=== PATIENT | female | born 1940 | race American Indian/Alaskan Native ===

== ENCOUNTER 2019-05-09 14:52 | Inpatient (IN) ==
--- NOTE | 2019-05-09 15:27 | Emergency Department Note ---
Lower Extremity Injury HPI - General Chief Complaint: Extremity Injury, Lower Stated Complaint: left hip pain Time Seen by Provider: 05/09/19 14:57 Source: patient, EMS, RN notes reviewed Mode of arrival: EMS Limitations: no limitations - History of Present Illness HPI Narrative: 78-year-old female patient presents to emergency department via ambulance as a transfer from [facility] emergency department with chief complaint of left hip and ankle pain. Patient tells me she was ambulating with a walking stick approximately 2 days ago when she actually dropped it and reached down to pick it up. During that time she fell forward landed on her left side injuring her right hip and ankle. She continued to have pain and was nonweightbearing on decided to seek treatment today (05/09). A review of the [facility] emergency note indicates the left hip x-ray showed a paced healing intertrochanteric femur fracture. Left ankle x-ray showed minor disruption of the cortex of the distal fibula which is consistent with a distal fibular fracture. The emergency room provider contacted Dr. Gillette (orthopedist) about the patient's need for further evaluation. Dr. Gillette recommended the patient be transferred to [facility] for further care. Upon arrival, patient is resting on the emergency room gurney in the position of comfort. She complains of mild pain to her ankle and left thigh. Her left ankle is currently in a air cast. She denies any systemic fever, sweats, chills, dizziness, vision changes, hearing changes, shortness of breath, retrosternal chest pain, palpitations, abdominal pain, nausea, vomiting, or diarrhea. 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 She typically uses a walker or walking stick to help with ambulation until her injury. Her other past history consists of type 2 diabetes and allergic rhinitis. Past surgical history consists of cerebral aneurysm repair, cholecystectomy, and CVA with left-sided hemiparesis. - Related Data Home Medications Medication Instructions Recorded Confirmed Brimonidine Tartrate [Lumify] 2.5 ml OP BID 05/09/19 05/09/19 Cyanocobalamin (Vitamin B-12) 1,000 mcg PO DAILY 05/09/19 05/09/19 [Vitamin B-12] Ergocalciferol (Vitamin D2) 50,000 unit PO DAILY 05/09/19 05/09/19 [Vitamin D2] Ferrous Sulfate 325 mg PO DAILY 05/09/19 05/09/19 HYDROcodone/APAP 5/325MG [[place] 1 tab PO Q4HP PRN 05/09/19 05/09/19 5-325Mg] Lactase [Ultra Dairy Digestive] 9,000 unit PO TID 05/09/19 05/09/19 Latanoprost/Pf [Latanoprost 0.005% 7.5 ml OP HS 05/09/19 05/09/19 Eye Drop] Lisinopril [Zestril] 20 mg PO DAILY 05/09/19 05/09/19 Melatonin 5 mg PO HS 05/09/19 05/09/19 Montelukast Sodium [Singulair] 10 mg PO HS 05/09/19 05/09/19 Pantoprazole Sodium [Protonix] 40 mg PO DAILY 05/09/19 05/09/19 Polyethylene Glycol 3350 [Clearlax] 17 gm PO DAILYP PRN 05/09/19 05/09/19 Sucralfate [Carafate] 1 gm PO BIDCC 05/09/19 05/09/19 Timolol 0.5% Ophth Drops [Timoptic 1 gtt OU BID 05/09/19 05/09/19 0.5% Ophth Drops] amLODIPine BESYLATE [Norvasc] 2.5 mg PO DAILY 05/09/19 05/09/19 Allergies Allergy/AdvReac Type Severity Reaction Status Date / Time aspirin Allergy Unknown Verified 05/09/19 14:57 Review of Systems All systems ED: reviewed and negative except as stated. Past Medical History - Past Medical History Medical history: Reports: CVA (CVA 2 resulting in left sided hemiparesis.), DM Psychiatric history: Reports: no psych history Surgical history ED: Reports: cholecystectomy, other (cerebral aneurysm repair) Family history: Reports: diabetes (in both her mother and father.) - Social History smoking status: Current every day smoker Physical Exam Limitations: no limitations, physical limitation (left-sided hemiparesis resulting in left upper and lower extremity weakness and decreased range of motion.) General appearance: alert, in no apparent distress Head: atraumatic, normocephalic Eye: Present: normal appearance, PERRL, EOMI. Absent: scleral icterus, conjunctival injection ENT: Present: normal oropharynx, mucous membranes moist Neck: Present: normal inspection, full ROM. Absent: tenderness, lymphadenopathy Respiratory: Present: normal lung sounds bilaterally. Absent: respiratory distress, wheezes, stridor, accessory muscle use, prolonged expiratory phase Cardiovascular: Present: regular rate, normal rhythm. Absent: systolic murmur, diastolic murmur Abdominal: Present: soft. Absent: distention, tenderness, guarding, rebound, rigidity, organomegaly, mass Extremities: Present: tenderness, normal capillary refill (to palpation of the left hip joint and left ankle.), joint swelling (left ankle.). Absent: full ROM, pedal edema, pretibial edema Neurological: Present: alert, oriented X3, motor sensory deficit (towards the left side.) Psychiatric: Present: normal affect, normal mood Skin: Present: warm, dry Course Course Narrative: Patient was brought into the emergency department and a history of physical exam was performed. IV was established and routine laboratory studies were drawn. EKG was obtained for preoperative clearance. Dr. Gillette will be arriving on the floor around 1700 this afternoon. Patient is going to be made comfortable awaiting his arrival. No repeat imaging will be performed until the senior analysis specialist arrives. A review of her laboratory studies show CBC with mild normocytic anemia RBC 3.87, hemoglobin 11.7, hematocrit 35.8, MCV 92.3. All is normal limits. CMP potassium 3.2, alkaline phosphatase 195, as normal limits. PT 13, INR 1.0. Portable 1 view chest x-ray showed mild cardiomegaly and interstitial lung disease. The senior analysis specialist arrived at the bedside and is now going to take the patient to the operating room. I reviewed all the data prior to the patient's admission and found no other concerning findings. Patient has rested comfortably on the emergency room gurney and left the emergency department in stable condition. At this time all other treatment decisions and orders will be carried out by the senior analysis specialist in conjunction with the hospitalist service. Vital Signs Temperature 97.3 F 05/09/19 14:52 Pulse Rate 69 05/09/19 14:52 Respiratory Rate 18 05/09/19 14:52 Blood Pressure 157/60 05/09/19 14:52 Pulse Oximetry (%) 99 05/09/19 14:52 Temperature 97.3 F 05/09/19 14:52 Pulse Rate 69 05/09/19 16:47 Respiratory Rate 18 05/09/19 14:52 Blood Pressure 175/53 05/09/19 16:46 Pulse Oximetry (%) 100 05/09/19 16:47 Extremity Injury, Lower - Lab Data Lab results reviewed: Yes I reviewed the patient's lab results. Result diagrams: 05/09/19 15:40 05/09/19 15:40 Lab Results 05/09/19 05/09/19 05/09/19 Range/Units 15:40 15:40 15:42 WBC 8.3 (4.5-11.0) K/mcL RBC 3.87 L (4.00-5.20) M/mcL Hgb 11.7 L (12.0-15.0) g/dL Hct 35.8 L (36.0-48.0) % MCV 92.3 (80.0-100.0) fL MCH 30.3 (26.0-34.0) pg MCHC 32.8 (31.0-36.0) g/dL RDW 13.1 (11.5-14.5) % Plt Count 409 (140-440) K/mcL MPV 8.8 (7.4-10.4) fL Gran % 66.4 (38.0-78.0) % Lymph % (Auto) 24.6 (15.5-49.0) % [place] % (Auto) 6.2 (1.0-12.0) % Eos % (Auto) 2.3 (0.0-7.0) % Baso % (Auto) 0.5 (0.0-2.0) % Gran # 5.5 (1.8-8.0) K/mcL Lymph # (Auto) 2.0 (1.5-4.8) K/mcL [place] # (Auto) 0.5 (0.1-0.9) K/mcL Eos # (Auto) 0.2 (0.0-0.7) K/mcL Baso # (Auto) 0 (0.0-0.3) K/mcL PT 13.0 (11.9-14.5) sec INR 1.0 (0.9-1.1) Sodium 140 (133-145) mmol/L Potassium 3.2 L (3.3-5.1) mmol/L Chloride 103 (96-108) mmol/L Carbon Dioxide 25 (22-30) mmol/L Anion Gap 12.0 (8-16) BUN 10 (8-23) mg/dl Creatinine 0.6 (0.6-1.1) mg/dl GFR Calculation 89 Glucose 101 (70-105) mg/dL Calcium 9.3 (8.6-10.4) mg/dl Total Bilirubin 0.4 (0.0-1.0) mg/dL AST 14 (0-37) U/l ALT 10 (0-40) U/l Alkaline Phosphatase 195 H (39-117) U/L Total Protein 7.1 (5.9-8.4) gm/dL Albumin 3.8 (3.2-5.2) gm/dL Globulin 3.3 (2.2-3.7) gm/dL Albumin/Globulin Ratio 1.2 (1.0-2.3) - Radiology Data Radiology results reviewed: Yes I reviewed the patient's radiology results. Ordering Physician: Ruben Blanca PA-C Date of Service: 05/09/19 Procedure(s): XR chest 1V portable Accession Number(s): [id number] CLINICAL INFORMATION: 78 y/o F. Daily smoker. preoperative eval. COMPARISON: None. FINDINGS: Heart is borderline enlarged. Mediastinum and pulmonary vessels are normal. There is mild interstitial disease in both lungs - more prominent in the perihilar region. No effusion. Right diaphragm mildly elevated IMPRESSION: Mild cardiomegaly. Mild interstitial disease, predominantly in perihilar regions, is most likely interstitial fibrosis related to smoking Interpreted and Authenticated by: Deandre Bryan 05/09/19 - EKG Data EKG attestation: Yes I reviewed and interpreted this EKG., Yes There are no EKG findings of acute coronary syndrome, Yes This EKG will be read by child protective services social worker Disposition Pt seen by [facility] only: Yes Clinical Impression: Normocytic anemia, Hypokalemia Fracture of hip Qualifiers: Encounter type: initial encounter Fracture type: closed Laterality: left Qualified Code(s): S72.002A - Fracture of unspecified part of neck of left femur, initial encounter for closed fracture Ankle fracture Qualifiers: Encounter type: initial encounter Fracture type: closed Laterality: left Qualified Code(s): S82.892A - Other fracture of left lower leg, initial encounter for closed fracture Disposition: Xfer As Inpt ([facility]) Condition: Fair Instructions: Hip Fracture (ED) Additional Instructions: Patient is being admitted to the hospital under the care of both the senior analysis specialist and the hospitalist. All other treatment decisions and orders will be carried out by them. Referrals: No,PCP [Referring] - Time of Disposition: 17:11
--- NOTE | 2019-05-09 16:13 | XRay Report ---
CLINICAL INFORMATION: 78 y/o F. Daily smoker. preoperative eval. COMPARISON: None. FINDINGS: Heart is borderline enlarged. Mediastinum and pulmonary vessels are normal. There is mild interstitial disease in both lungs - more prominent in the perihilar region. No effusion. Right diaphragm mildly elevated IMPRESSION: Mild cardiomegaly. Mild interstitial disease, predominantly in perihilar regions, is most likely interstitial fibrosis related to smoking Interpreted and Authenticated by: Deandre Bryan 05/09/19
[2019-05-09 16:21] LABS: Basophils # (Auto) 0 K/mcL (0.0-0.3); Basophils % (Auto) 0.5 % (0.0-2.0); Eosinophils # (Auto) 0.2 K/mcL (0.0-0.7); Eosinophils % (Auto) 2.3 % (0.0-7.0); Granulocytes % (Auto) 66.4 % (38.0-78.0); Hematocrit 35.8 % (36.0-48.0); Hemoglobin 11.7 g/dL (12.0-15.0); Lymphocytes % (Auto) 24.6 % (15.5-49.0); Mean Cell Volume 92.3 fL (80.0-100.0); Mean Corpuscular HGB Conc 32.8 g/dL (31.0-36.0); Mean Platelet Volume 8.8 fL (7.4-10.4); Monocytes # (Auto) 0.5 K/mcL (0.1-0.9); Monocytes % (Auto) 6.2 % (1.0-12.0); Platelet Count 409 K/mcL (140-440); RBC 3.87 M/mcL (4.00-5.20); Red Cell Distribution Width 13.1 % (11.5-14.5); WBC 8.3 K/mcL (4.5-11.0)
[2019-05-09 16:35] LABS: ALT/SGPT 10 U/l (0-40); AST/SGOT 14 U/l (0-37); Albumin 3.8 gm/dL (3.2-5.2); Albumin/Globulin Ratio 1.2 (1.0-2.3); Alkaline Phosphatase 195 U/L (39-117); Bilirubin,Total 0.4 mg/dL (0.0-1.0); Blood Urea Nitrogen 10 mg/dl (8-23); Calcium 9.3 mg/dl (8.6-10.4); Carbon Dioxide 25 mmol/L (22-30); Chloride 103 mmol/L (96-108); Globulin 3.3 gm/dL (2.2-3.7); Glomerular Filtration Rate 89; Glucose 101 mg/dL (70-105)
[2019-05-09] MEDS ORDERED: fentaNYL 100 MCG/2 ML VIAL IV ONE (17:35)
[2019-05-09] MEDS ORDERED: GLYCOPYRROLATE 0.2 MG/ML VIAL IV ONE (17:35)
[2019-05-09] MEDS ORDERED: LIDOCAINE HCL/PF 100 MG/5 ML SYRINGE IV ONE (17:35)
[2019-05-09] MEDS ORDERED: DEXAMETHASONE 10 MG/ML VIAL IV ONE (17:35)
[2019-05-09] MEDS ORDERED: KETAMINE 100 MG/ML ML IV ONE (17:35)
[2019-05-09] MEDS ORDERED: PROPOFOL 200 MG/20 ML VIAL IV ONE (17:35)
[2019-05-09] MEDS ORDERED: ONDANSETRON 4 MG/2 ML VIAL IV ONE (17:35)
[2019-05-09] MEDS ORDERED: MIDAZOLAM 2 MG/2 ML VIAL IV ONE (17:35)
[2019-05-09] MEDS ORDERED: fentaNYL 100 MCG/2 ML VIAL IV PRN (18:24)
[2019-05-09] MEDS ORDERED: LACTATED RINGERS 250 ML IV PRN (18:24)
[2019-05-09] MEDS ORDERED: ACETAMINOPHEN 1,000 MG/100 ML BOTTLE IV ONE (18:24)
[2019-05-09] MEDS ORDERED: BENZOCAINE/MENTHOL 1 LOZENGE PO PRN (18:24)
[2019-05-09] MEDS ORDERED: HYDROmorphone 2 MG/ML VIAL IV PRN (18:24)
[2019-05-09] MEDS ORDERED: ONDANSETRON 4 MG/2 ML VIAL IV PRN ×2 (18:24→19:48)
[2019-05-09] MEDS ORDERED: FLUMAZENIL 0.1 MG/ML ML IV PRN (18:24)
[2019-05-09] MEDS ORDERED: NALOXONE HCL 0.4 MG/ML VIAL IV PRN (18:24)
[2019-05-09] MEDS ORDERED: IPRATROPIUM/ALBUTEROL 3 ML AMPUL.NEB NEB PRN (18:24)
[2019-05-09] MEDS ORDERED: LACTATED RINGERS 1,000 ML IV SCH (18:30)
--- NOTE | 2019-05-09 18:49 | Brief Operative Note ---
Date of procedure: 05/09/19 Pre-op diagnosis: L hip intertrochanateric fracture Post-op diagnosis: same Procedure: gamma nail Grafts/Implants: Yes (gamma karol) Anesthesia: GETA Complications: none Surgeon: Thong Gillette Card Scraper: Ella Bradley Estimated blood loss (cc): 50 Specimens Removed/Pathology: none sent Condition: stable Disposition: PACU
--- NOTE | 2019-05-09 19:44 | History and Physical Report ---
DATE OF ADMISSION: 05/09/2019 IDENTIFICATION: Ms. Alvarez is a 78-year-old female. CHIEF COMPLAINT: Left hip fracture. HISTORY: Kayla sustained a fall 2 days ago. She presented to [facility] today and radiographs demonstrated the fracture. She is now transferred for further evaluation. I have spoken with the hospitalist. They agreed to manage the patient's medical problems, and I have been asked to care for her left hip fracture. PAST MEDICAL HISTORY: Significant for hypertension and dyspepsia as well as respiratory disease. PAST SURGICAL HISTORY: She had a previous CVA repair, cholecystectomy. She does have a history of type 2 diabetes. MEDICATIONS: Include oral supplements, hydrocodone, Latanoprost eyedrops, Zestril, Singulair, Protonix, Norvasc. ALLERGIES: TO ASPIRIN. PHYSICAL EXAMINATION: GENERAL: She is awake and alert. HEENT: Head is normocephalic, atraumatic. Eyes: PERRLA. Conjunctivae clear. She does have diffuse weakness throughout her left. NECK: Supple without pain on range of motion. HEART: Regular. LUNGS: Clear. LOWER EXTREMITIES: Her left hip shows pain with any motion. She does seem to be grossly without neurovascular deficit. Hemoglobin 11.7, hematocrit 35.8. IMAGING: Radiographs demonstrated an intertrochanteric hip fracture. PLAN: Will proceed with an open reduction and internal fixation of the left hip. GDD:in Job ID: [id number] Doc ID: [id number] Thong Gillette MD
[2019-05-09] MEDS ORDERED: MAGNESIUM SULFATE 2 GM/50 ML BAG IV PRN (19:48)
[2019-05-09] MEDS ORDERED: ACETAMINOPHEN 800 MG/80 ML BOTTLE IV PRN (19:48)
[2019-05-09] MEDS ORDERED: MAGNESIUM HYDROXIDE 30 ML ORAL.SUSP PO PRN (19:48)
[2019-05-09] MEDS ORDERED: traZODone HCL 50 MG TABLET PO PRN (19:48)
[2019-05-09] MEDS ORDERED: guaiFENesin/CODEINE 10 ML UDC PO PRN (19:48)
[2019-05-09] MEDS ORDERED: POTASSIUM CHLORIDE 40 MEQ in DEXTROSE 5% IN WATER 500 ML IV PRN (19:48)
[2019-05-09] MEDS ORDERED: POLYETHYLENE GLYCOL 3350 17 GM PACKET PO PRN ×2 (19:48)
[2019-05-09] MEDS: 0.9 % SODIUM CHLORIDE 1,000 ML IV SCH (20:13)
--- NOTE | 2019-05-09 20:19 | Internal Medicine Consult Note ---
Medical - CN: HPI - Data of Consult Requesting physician: Thong Gillette - Consult Narrative Reason for consult: Fall with left hip injury History of present illness: Ms. Alvarez is a 78 year old F with known history of CVA with left-sided weakness who presents to [place] [facility] after getting off balance and stumbled while reaching for her walker. She sustained injuries to her left side. Subsequent evaluation at [place] [facility] revealed left intertrochanteric femur fracture along with left ankle fracture which was splinted in the ER. Orthopedics was consulted and patient was transferred to [facility] for further orthopedic intervention. Patient at baseline uses a walker from her left left hemiparesis. She carries a history of NIDDM. She denies recent cardiac surgery. She has carries a history of hypertension which is well controlled on home med ications. She denies any precipitating events prior to fall including lightheadedness dizziness thunderclap headache seizure or incontinence. She denies vision loss. Patient endorses to history as above. She denies fever chills, diarrhea, chest pain. She denies changes in medications. Review of systems A 10 point review system was performed and is negative except for one discussed above CC: Puneet Fontaine Medical - CN: PMH Medical history: Hypertension History of CVA with left-sided deficits Degenerative joint disease Glaucoma DM type II Seasonal allergy disorder GERD Peptic ulcer disease Surgical history: Cholecystectomy Cerebral aneurysm repair Family history: reviewed and not pertinent Pertinent family history: Diabetes father and mother Smoking status: Current every day smoker Medical - CN: Meds Home Medications Medication Instructions Recorded Confirmed Type Brimonidine Tartrate [Lumify] 2.5 ml OP BID 05/09/19 05/09/19 History Cyanocobalamin (Vitamin B-12) 1,000 mcg PO DAILY 05/09/19 05/09/19 History [Vitamin B-12] Ergocalciferol (Vitamin D2) 50,000 unit PO DAILY 05/09/19 05/09/19 History [Vitamin D2] Ferrous Sulfate 325 mg PO DAILY 05/09/19 05/09/19 History HYDROcodone/APAP 5/325MG [[place] 1 tab PO Q4HP PRN 05/09/19 05/09/19 History 5-325Mg] Lactase [Ultra Dairy Digestive] 9,000 unit PO TID 05/09/19 05/09/19 History Latanoprost/Pf [Latanoprost 0.005% 7.5 ml OP HS 05/09/19 05/09/19 History Eye Drop] Lisinopril [Zestril] 20 mg PO DAILY 05/09/19 05/09/19 History Melatonin 5 mg PO HS 05/09/19 05/09/19 History Montelukast Sodium [Singulair] 10 mg PO HS 05/09/19 05/09/19 History Pantoprazole Sodium [Protonix] 40 mg PO DAILY 05/09/19 05/09/19 History Polyethylene Glycol 3350 [Clearlax] 17 gm PO DAILYP PRN 05/09/19 05/09/19 History Sucralfate [Carafate] 1 gm PO BIDCC 05/09/19 05/09/19 History Timolol 0.5% Ophth Drops [Timoptic 1 gtt OU BID 05/09/19 05/09/19 History 0.5% Ophth Drops] amLODIPine BESYLATE [Norvasc] 2.5 mg PO DAILY 05/09/19 05/09/19 History Allergies Allergy/AdvReac Type Severity Reaction Status Date / Time aspirin Allergy Unknown Verified 05/09/19 14:57 Medical - CN: Exam - Constitutional Vitals: Temp Pulse Resp BP Pulse Ox 96.9 F L 67 16 158/61 97 05/09/19 19:20 05/09/19 19:20 05/09/19 19:20 05/09/19 19:20 05/09/19 19:20 General appearance: no acute distress Exam: Alert oriented Head normocephalic Oral cavity dry No ear nose discharge Neck no hepatopathy S1-S2 occasionally irregular, ESM grade 1 Diminished breath sounds bases Abdomen soft nontender Lower extremity no sinus clubbing no joint swelling Left lower extremity ankle splinted, externally rotated and shortened Skin no suspicious lesion Psych alert cooperative Neuro nonfocal except for previous left-sided deficits with grade 3 strength left upper extremity Medical - CN: Result - Labs CBC & Chem 7: 05/09/19 15:40 05/09/19 15:40 Labs: Short CBC 05/09/19 Range/Units 15:40 WBC 8.3 (4.5-11.0) K/mcL Hgb 11.7 L (12.0-15.0) g/dL Hct 35.8 L (36.0-48.0) % Plt Count 409 (140-440) K/mcL BMP 05/09/19 15:40 Sodium 140 Potassium 3.2 L Chloride 103 Carbon Dioxide 25 BUN 10 Creatinine 0.6 Glucose 101 Calcium 9.3 Liver Function 05/09/19 Range/Units 15:40 Total Bilirubin 0.4 (0.0-1.0) mg/dL AST 14 (0-37) U/l ALT 10 (0-40) U/l Alkaline Phosphatase 195 H (39-117) U/L Albumin 3.8 (3.2-5.2) gm/dL Medical - CN: A/P (1) Fracture of hip Status: Acute Assessment and plan: * Left femoral neck fracture-patient will undergo orthopedic intervention * Left ankle fracture splinted * Pain management as per orthopedics * DVT prophylaxis will be as per orthopedics Hospitalist consult * Preoperative risk evaluation-based on RCRI [place] [employer] stratification patient is a high risk category given history of CVA x2 however there are no modifiable risk factors at this time. Would recommend maintaining intraoperative map over 65 to maintain adequate cerebral and coronary perfusion. Anesthesia and surgery specific risks will be addressed by difficult care providers * History of hypertension continue LETTY inhibitor/CCB * hypokalemia replace potassium as indicated * History of glaucoma continue brimonidine/latanoprost * GERD continue PPI/sucralfate * DM type II continue sliding-scale insulin/diabetic diet * full code Plan * Review postoperatively * Pain management * Pre-existing well condition management as above * Postoperative care as per orthopedics
[2019-05-09] MEDS: HEPARIN 5,000 UNIT/ML VIAL SQ SCH (20:47)
[2019-05-09] MEDS: DOCUSATE SODIUM 100 MG CAPSULE PO SCH (20:47)
[2019-05-09] MEDS: MELATONIN 3 MG TABLET PO SCH (20:48)
[2019-05-09] MEDS: MONTELUKAST 10 MG TABLET PO SCH (20:48)
[2019-05-09] MEDS: SENNOSIDES/DOCUSATE SODIUM 1 TAB TABLET PO SCH (20:48)
[2019-05-09] MEDS: LATANOPROST OPHTH DROPS 2.5ML BOTTLE OU SCH (20:49)
[2019-05-09] MEDS: BRIMONIDINE OPHTH DROPS 1 GTT BOTTLE 5ML OU SCH (20:49)
[2019-05-09] MEDS: TIMOLOL 0.5% OPHTH DROPS BOTTLE 5ML OU SCH (20:49)
[2019-05-09] MEDS: HYDROcodone/APAP 5/325MG TABLET PO PRN (20:49)
[2019-05-09] MEDS: LACTASE 1 TABLET PO SCH (20:55)
[2019-05-09] MEDS: 0.9 % SODIUM CHLORIDE 10 ML SYRINGE IV SCH (23:17)
[2019-05-10] MEDS: HYDROmorphone 2 MG/ML VIAL IV PRN (01:01)
[2019-05-10] MEDS: HYDROcodone/APAP 5/325MG TABLET PO PRN ×4 (02:24→21:04)
[2019-05-10] MEDS: 0.9 % SODIUM CHLORIDE 10 ML SYRINGE IV SCH ×3 (05:37→20:58)
--- NOTE | 2019-05-10 06:41 | XRay Report ---
CLINICAL INFORMATION: Left hip fracture COMPARISON: Preoperative films unavailable FINDINGS: Intertrochanteric fracture is reduced to anatomic alignment and transfixed by gamma nail. Mild left hip degenerative changes noted IMPRESSION: ORIF intertrochanteric fracture transfixed by gamma nail. Anatomic alignment Interpreted and Authenticated by: Deandre Bryan 05/10/19
[2019-05-10 07:12] LABS: ALT/SGPT 13 U/l (0-40); AST/SGOT 23 U/l (0-37); Albumin 2.9 gm/dL (3.2-5.2); Albumin/Globulin Ratio 0.9 (1.0-2.3); Alkaline Phosphatase 164 U/L (39-117); Bilirubin,Direct < 0.2 mg/dL (0.0-0.3); Bilirubin,Total 0.3 mg/dL (0.0-1.0); Blood Urea Nitrogen 12 mg/dl (8-23); Calcium 8.5 mg/dl (8.6-10.4); Carbon Dioxide 22 mmol/L (22-30); Chloride 102 mmol/L (96-108); Globulin 3.1 gm/dL (2.2-3.7); Glomerular Filtration Rate 89; Glucose 248 mg/dL (70-105); Lactate Dehydrogenase 305 U/L (94-250); Phosphorous 4.4 mg/dL (2.7-4.5); Triglycerides 98 mg/dl (<150); Uric Acid 3.4 mg/dL (2.5-8.0)
[2019-05-10 07:13] LABS: Hematocrit 29.2 % (36.0-48.0); Hemoglobin 9.9 g/dL (12.0-15.0); Mean Cell Volume 94.2 fL (80.0-100.0); Mean Corpuscular HGB Conc 33.8 g/dL (31.0-36.0); Mean Platelet Volume 9.1 fL (7.4-10.4); Platelet Count 363 K/mcL (140-440); WBC 8.2 K/mcL (4.5-11.0)
[2019-05-10] MEDS: PANTOPRAZOLE 40 MG TABLET PO SCH (07:18)
--- NOTE | 2019-05-10 07:31 | Operative Note ---
DATE OF OPERATION: 05/09/2019 PREOPERATIVE DIAGNOSIS: Left intertrochanteric hip fracture. POSTOPERATIVE DIAGNOSIS: Left intertrochanteric hip fracture. OPERATION PROPOSED: Reduction and intramedullary hip screw fixation of left intertrochanteric hip fracture. OPERATION PERFORMED: Reduction and intramedullary hip screw fixation of left intertrochanteric hip fracture. OPERATING SURGEON: Ulises Gillette MD SOLID WASTE TRUCK DRIVER: Ella Bradley PA-C. This provider's expertise and technical skill were required throughout the case. The PA assisted with preoperative coordination, intraoperative retraction, wound closure, dressing and splint application, as well as postoperative documentation and care coordination. INDICATIONS: This is an elderly lady with a displaced intertrochanteric hip fracture in need of operative treatment. OPERATION IN DETAIL: Informed consent was obtained. She was taken to the operating where she was provided with appropriate anesthetic and prophylactic antibiotics. She was carefully positioned. Her hip was prepped sterilely. An incision was made proximal to the greater trochanter. The trochanter was entered at the tip. I centered the wire on the lateral projection and then advanced into the intramedullary canal. I then opened with the opening reamer. A short gamma nail was advanced across the guidewire. I then drilled the outer cortex. I advanced a 3.2 mm guidewire into the femoral head and neck. I reamed and placed a hip bolt. Compression was applied. A distal interlocking screw was applied and I applied a locking screw to the construct. The wounds were irrigated thoroughly and closed with an 0 Vicryl interrupted fashion, 2-0 Vicryl inverted deep dermal, and dulce. The procedure was tolerated well. No complications. Estimated blood loss is 50 mL GDD:marion Job ID: [id number] Doc ID: [id number] Thong Gillette MD
[2019-05-10] MEDS: SUCRALFATE 1 GM TABLET PO SCH ×2 (07:37→16:54)
[2019-05-10] MEDS: FERROUS SULFATE 325 MG TABLET PO SCH (07:37)
[2019-05-10] MEDS: amLODIPine 5 MG TABLET PO SCH (08:11)
[2019-05-10] MEDS: HEPARIN 5,000 UNIT/ML VIAL SQ SCH ×2 (08:11→20:57)
[2019-05-10] MEDS: MULTIVIT,THER IRON,CA,FA & MIN 1 TABLET PO SCH (08:11)
[2019-05-10] MEDS: LISINOPRIL 20 MG TABLET PO SCH (08:11)
[2019-05-10] MEDS: CYANOCOBALAMIN (VITAMIN B-12) 500 MCG TABLET PO SCH (08:12)
[2019-05-10] MEDS: DOCUSATE SODIUM 100 MG CAPSULE PO SCH ×2 (08:12→20:57)
[2019-05-10] MEDS: BRIMONIDINE OPHTH DROPS 1 GTT BOTTLE 5ML OU SCH ×2 (08:16→20:58)
--- NOTE | 2019-05-10 08:21 | Orthopedic Progress Note ---
Subjective Patient information: Note initiated : 05/10/19 at 8:19 am Service Date, if different from initiated Date: [] Patient: Kayla Alvarez 78 y/o F admitted on 05/09/19 for left hip pain. Chief Complaint: [] Objective Vital signs: Vital Signs Temp Pulse Pulse Resp BP BP Pulse Ox 05/10/19 07:07 99.4 F H 20 142/61 97 05/10/19 06:56 68 05/10/19 04:00 98 F 79 18 130/62 96 05/09/19 23:56 98.0 F 69 18 141/61 100 05/09/19 22:35 97.6 F 66 18 143/62 100 05/09/19 21:35 97.0 F 65 18 141/60 100 05/09/19 21:05 97.2 F 78 16 148/62 98 05/09/19 20:35 97.0 F 65 16 131/61 97 05/09/19 20:05 97.1 F 67 18 152/67 99 05/09/19 19:50 97.0 F 64 18 159/65 98 05/09/19 19:35 97.1 F 69 16 152/65 97 05/09/19 19:20 96.9 F L 71 16 158/61 98 05/09/19 19:18 97.3 F 70 16 168/58 100 05/09/19 19:09 97.3 F 73 16 161/52 100 05/09/19 18:54 97.3 F 79 14 167/73 100 05/09/19 18:49 80 10 L 167/76 100 05/09/19 18:44 80 20 162/58 100 05/09/19 18:40 97.8 F 79 15 139/56 100 05/09/19 17:14 97.3 F 69 18 175/53 100 05/09/19 16:47 69 100 05/09/19 16:46 68 175/53 100 05/09/19 16:31 66 169/60 96 05/09/19 16:30 70 97 05/09/19 16:16 70 158/61 97 05/09/19 16:14 71 158/61 97 05/09/19 15:47 149/52 05/09/19 15:32 153/49 05/09/19 15:17 174/108 05/09/19 15:01 70 167/70 99 05/09/19 14:58 66 157/60 98 05/09/19 14:52 97.3 F 69 18 157/60 99 Intake and Output 05/09/19 05/10/19 05/10/19 21:59 05:59 13:59 Intake Total 800 400 Output Total 75 400 Balance 725 0 Intake: IV 100 Oral 400 IV - Manual Only 700 Output: Urine Catheter Amount 75 400 Other: Urine Appearance Clear Clear Uretheral (Antony) Clear Clear Urine Color Pale Pale Straw Straw Uretheral (Antony) Pale Pale Straw Straw Urine Odor Normal Normal Uretheral (Antony) Normal Normal Weight 124 lb Intake & Output: Intake & Output 05/09/19 05/10/19 05/10/19 21:59 05:59 13:59 Intake Total 800 400 Output Total 75 400 Balance 725 0 Weight 124 lb Intake: IV 100 Oral 400 IV - Manual Only 700 Output: Urine Catheter Amount 75 400 Other: Urine Appearance Clear Clear Uretheral (Antony) Clear Clear Urine Color Pale Pale Straw Straw Uretheral (Antony) Pale Pale Straw Straw Urine Odor Normal Normal Uretheral (Antony) Normal Normal Dressing: Yes clean, Yes dry, Yes intact Weight bearing status: non Neurological exam IM: Yes neurovascular intact Extremities exam IM: Yes neurovascular intact - Labs CBC & BMP: 05/10/19 04:00 05/10/19 04:00 Labs: Orthopedic Labs 05/09/19 15:42 PT 13.0 INR 1.0 05/10/19 05/09/19 04:00 15:40 Hgb 9.9 L 11.7 L Hct 29.2 L 35.8 L Assessment and Plan (1) Fracture of hip Status: Acute Qualifiers: Encounter type: initial encounter Fracture type: closed Laterality: left Qualified Code(s): S72.002A - Fracture of unspecified part of neck of left femur, initial encounter for closed fracture (2) Ankle fracture Status: Acute Qualifiers: Encounter type: initial encounter Fracture type: closed Laterality: left Qualified Code(s): S82.892A - Other fracture of left lower leg, initial encounter for closed fracture (3) Normocytic anemia Status: Acute (4) Hypokalemia Status: Acute - Narrative A/P Narrative: mobilize with pt
[2019-05-10] MEDS: TIMOLOL 0.5% OPHTH DROPS BOTTLE 5ML OU SCH ×2 (08:54→20:58)
[2019-05-10 09:08] LABS: Lymphocytes % 9 % (15-49); Monocytes % (Manual) 3 % (1-12); Platelet Estimate NORMAL (NORMAL); RBC Morphology NORMAL (NORMAL); Segmented Neutrophils % 88 % (38-78)
--- NOTE | 2019-05-10 09:24 | Internal Med Progress Note ---
Medical - PN: Subj Patient information: Note initiated : 05/10/19 at 9:22 am Service Date, if different from initiated Date: [] Patient: Kayla Alvarez a 78 y/o F admitted on 05/09/19 for left hip pain. Chief Complaint: [] Interval history: Ms. Alvarez is a 78 year old F with known history of CVA with left-sided weakness who presents to [place] [facility] after getting off balance and stumbled while reaching for her walker. She sustained injuries to her left side. Subsequent evaluation at [place] [facility] revealed left intertrochanteric femur fracture along with left ankle fracture which was splinted in the ER. Orthoped ics was consulted and patient was transferred to [facility] for further orthopedic intervention. Patient at baseline uses a walker from her left left hemiparesis. She carries a history of NIDDM. She denies recent cardiac surgery. She has carries a history of hypertension which is well controlled on home medications. She denies any precipitating events prior to fall including lightheadedness dizz iness thunderclap headache seizure or incontinence. She denies vision loss. Patient endorses to history as above. She denies fever chills, diarrhea, chest pain. She denies changes in medications. 05/10-postop day 1. Patient doing well. No overnight events. No significant postoperative pain. Tolerating diet. Ongoing physical therapy. No concerns expressed to nursing staff. Case management to coordinate discharge planning - Constitutional Vitals: Vital Signs Temp Pulse Resp BP Pulse Ox 99.4 F H 68 20 142/61 97 05/10/19 07:07 05/10/19 06:56 05/10/19 07:07 05/10/19 07:07 05/10/19 07:07 Period Temp Pulse Resp BP Sys/Anaya Pulse Ox Last 24 Hr 96.9 F-99.4 F 64-80 10-20 130-175/49-108 96-100 Intake and Output 05/09/19 05/10/19 05/10/19 21:59 05:59 13:59 Intake Total 800 400 Output Total 75 400 Balance 725 0 Weight 124 lb Intake & Output: Intake & Output 05/09/19 05/10/19 05/10/19 21:59 05:59 13:59 Intake Total 800 400 Output Total 75 400 Balance 725 0 Weight 124 lb Intake: IV 100 Oral 400 IV - Manual Only 700 Output: Urine Catheter Amount 75 400 Other: Urine Appearance Clear Clear Uretheral (Antony) Clear Clear Urine Color Pale Pale Straw Straw Uretheral (Antony) Pale Pale Straw Straw Urine Odor Normal Normal Uretheral (Antony) Normal Normal General appearance: no acute distress Exam: Alert oriented No significant postoperative site pain or swelling Nonlabored breathing No anxiety Medical - PN: Obj Da - Labs CBC & Chem 7: 05/10/19 04:00 05/10/19 04:00 Labs: Abnormal Lab Results 05/10/19 05/10/19 05/09/19 04:00 04:00 15:40 RBC 3.10 L Hgb 9.9 L Hct 29.2 L Seg Neutrophils % 88 H Lymphocytes % 9 L Potassium 3.2 L Glucose 248 H Calcium 8.5 L Alkaline Phosphatase 164 H 195 H Lactate Dehydrogenase 305 H Albumin 2.9 L Albumin/Globulin Ratio 0.9 L 05/09/19 15:40 RBC 3.87 L Hgb 11.7 L Hct 35.8 L Seg Neutrophils % Lymphocytes % Potassium Glucose Calcium Alkaline Phosphatase Lactate Dehydrogenase Albumin Albumin/Globulin Ratio Meds: Medications Acetaminophen (Tylenol) 650 mg PO Q4-6HP PRN PRN Reason: PAIN/FEVER > 101 Hydrocodone Bitart/Acetaminophen ([place] 5/325mg) 1 tab PO Q4HP PRN PRN Reason: Pain Last Admin: 05/10/19 06:55 Dose: 1 tab Documented by: Amlodipine Besylate (Norvasc) 2.5 mg PO DAILY [facility] Last Admin: 05/10/19 08:11 Dose: 2.5 mg Documented by: Brimonidine Tartrate (Alphagan P Ophth Drops) 1 gtt OU BID [facility] Last Admin: 05/10/19 08:16 Dose: Not Given Documented by: Cyanocobalamin (Vitamin B-12) 1,000 mcg PO DAILY [facility] Last Admin: 05/10/19 08:12 Dose: 1,000 mcg Documented by: Docusate Sodium (Colace) 100 mg PO BID [facility] Last Admin: 05/10/19 08:12 Dose: 100 mg Documented by: Ergocalciferol (Drisdol) 50,000 unit PO DAILY [facility] Ferrous Sulfate (Ferrous Sulfate) 325 mg PO [facility] Last Admin: 05/10/19 07:37 Dose: 325 mg Documented by: Guaifenesin/Codeine Phosphate (Robitussin Ac) 10 ml PO Q4HP PRN PRN Reason: Cough Heparin Sodium (Porcine) (Heparin) 5,000 unit SQ Q12 [facility] Last Admin: 05/10/19 08:11 Dose: 5,000 unit Documented by: Hydromorphone HCl (Dilaudid) 0 mg IV Q4HP PRN PRN Reason: PAIN LEVEL > 6 Last Admin: 05/10/19 01:01 Dose: 0.5 mg Documented by: Potassium Chloride 40 meq/ (Dextrose) 520 mls @ 130 mls/hr IV UD PRN PRN Reason: K+ = or < 3.5 Magnesium Sulfate (Magnesium Sulfate) 2 gm in 50 mls @ 50 mls/hr IV UD PRN PRN Reason: MG = or < 1.7 Sodium Chloride (Sodium Chloride 0.9%) 1,000 mls @ 50 mls/hr IV .Q20H [facility] Stop: 05/12/19 07:47 Last Admin: 05/09/19 20:13 Dose: 50 mls/hr Documented by: Acetaminophen (Ofirmev) 800 mg in 80 mls @ 160 mls/hr IV Q6HP PRN PRN Reason: PAIN/FEVER > 101 Iron Carb/Multivit/Lawyer/Folic Acid (Multivitamin W/Minerals) 1 tab PO DAILY [facility] Last Admin: 05/10/19 08:11 Dose: 1 tab Documented by: Lactase (Lactaid) 1 tab PO TID [facility] Last Admin: 05/09/19 20:55 Dose: Not Given Documented by: Latanoprost (Xalatan Ophth Drops) 1 gtt OU [facility] Last Admin: 05/09/19 20:49 Dose: Not Given Documented by: Lisinopril (Zestril) 20 mg PO DAILY [facility] Last Admin: 05/10/19 08:11 Dose: 20 mg Documented by: Magnesium Hydroxide (Milk Of Magnesia) 30 ml PO HSP PRN PRN Reason: Constipation Melatonin (Melatonin 3mg Tablet) 3 mg PO [facility] Last Admin: 05/09/19 20:48 Dose: 3 mg Documented by: Montelukast Sodium (Singular) 10 mg PO [facility] Last Admin: 05/09/19 20:48 Dose: 10 mg Documented by: Ondansetron HCl (Zofran) 4 mg IV Q4-6HP PRN PRN Reason: Nausea And Vomiting Pantoprazole Sodium (Protonix) 40 mg PO QAMAC [facility] Last Admin: 05/10/19 07:18 Dose: 40 mg Documented by: Polyethylene Glycol (Miralax) 17 gm PO DAILYP PRN PRN Reason: Constipation Senna/Docusate Sodium (Senna Plus Tablet) 1 tab PO HS [facility] Last Admin: 05/09/19 20:48 Dose: 1 tab Documented by: Sodium Chloride (Saline Flush) 10 ml IV Q8 [facility] Last Admin: 05/10/19 05:37 Dose: Not Given Documented by: Sucralfate (Carafate) 1 gm PO BIDCC [facility] Last Admin: 05/10/19 07:37 Dose: 1 gm Documented by: Timolol Maleate (Timoptic 0.5% Ophth Drops) 1 gtt OU BID [facility] Last Admin: 05/10/19 08:54 Dose: Not Given Documented by: Trazodone HCl (Desyrel) 50 mg PO HSP PRN PRN Reason: Insomnia Medical - PN: A/P - Time Spent With Patient Total time spent is greater than 50% in coordination of care (as documented) at patient's floor/unit and/or counseling patient: 25 - 35 minutes (1) Fracture of hip Status: Acute Assessment and plan: * Left femoral neck fracture-postoperative day 1. Doing well. * Left ankle fracture Managed by orthopedics. On splint * Pain management well controlled Hospitalist consult * History of hypertension stable on home dose LETTY inhibitor/CCB * hypokalemia improved with oral replacement. Potassium 3.9 * History of glaucoma continue brimonidine/latanoprost * GERD continue PPI/sucralfate * DM type II continue sliding-scale insulin/diabetic diet * Full code * Prophylaxis heparin Plan * Continue aggressive PT OT/rehab * Pain management * Postoperative care as per orthopedics * Pre-existing well condition management as above * Discharge planning per case management Current Visit: Yes Medical - PN: Qual - Stroke Symptom Onset Unknown: No - VTE Deep Vein Thrombosis/Pulmonary Embolism Present on Admission: No
[2019-05-10] MEDS: LACTASE 1 TABLET PO SCH ×3 (11:59→20:57)
[2019-05-10] MEDS: 0.9 % SODIUM CHLORIDE 1,000 ML IV SCH (14:35)
[2019-05-10] MEDS: ACETAMINOPHEN 325 MG TABLET PO PRN (16:21)
[2019-05-10] MEDS: SENNOSIDES/DOCUSATE SODIUM 1 TAB TABLET PO SCH (20:57)
[2019-05-10] MEDS: MELATONIN 3 MG TABLET PO SCH (20:58)
[2019-05-10] MEDS: LATANOPROST OPHTH DROPS 2.5ML BOTTLE OU SCH (20:58)
[2019-05-10] MEDS: MONTELUKAST 10 MG TABLET PO SCH (20:58)
[2019-05-11] MEDS: ACETAMINOPHEN 325 MG TABLET PO PRN ×2 (00:45→17:10)
[2019-05-11] MEDS: HYDROcodone/APAP 5/325MG TABLET PO PRN ×4 (04:33→21:10)
[2019-05-11] MEDS: 0.9 % SODIUM CHLORIDE 10 ML SYRINGE IV SCH ×2 (04:33→13:45)
[2019-05-11 05:54] LABS: Hemoglobin 8.3 g/dL (12.0-15.0); Mean Cell Volume 94.4 fL (80.0-100.0); Mean Corpuscular HGB Conc 33.2 g/dL (31.0-36.0); Platelet Count 317 K/mcL (140-440); RBC 2.65 M/mcL (4.00-5.20); Red Cell Distribution Width 13.1 % (11.5-14.5); WBC 7.5 K/mcL (4.5-11.0)
[2019-05-11 06:10] LABS: ALT/SGPT 9 U/l (0-40); AST/SGOT 10 U/l (0-37); Albumin 2.6 gm/dL (3.2-5.2); Alkaline Phosphatase 136 U/L (39-117); Bilirubin,Direct < 0.2 mg/dL (0.0-0.3); Bilirubin,Total 0.2 mg/dL (0.0-1.0); Blood Urea Nitrogen 11 mg/dl (8-23); Carbon Dioxide 23 mmol/L (22-30); Chloride 107 mmol/L (96-108); Globulin 2.5 gm/dL (2.2-3.7); Glomerular Filtration Rate 89; Glucose 137 mg/dL (70-105); Lactate Dehydrogenase 186 U/L (94-250); Phosphorous 2.6 mg/dL (2.7-4.5); Triglycerides 141 mg/dl (<150); Uric Acid 3.2 mg/dL (2.5-8.0)
[2019-05-11 06:34] LABS: Basophils % (Manual) 1 % (0-2); Eosinophils % (Manual) 3 % (0-7); Lymphocytes % 33 % (15-49); Monocytes % (Manual) 7 % (1-12); Platelet Estimate NORMAL (NORMAL); RBC Morphology NORMAL (NORMAL); Segmented Neutrophils % 56 % (38-78)
[2019-05-11] MEDS: FERROUS SULFATE 325 MG TABLET PO SCH (08:14)
[2019-05-11] MEDS: MULTIVIT,THER IRON,CA,FA & MIN 1 TABLET PO SCH (08:14)
[2019-05-11] MEDS: DOCUSATE SODIUM 100 MG CAPSULE PO SCH ×2 (08:14→21:10)
[2019-05-11] MEDS: LISINOPRIL 20 MG TABLET PO SCH (08:14)
[2019-05-11] MEDS: amLODIPine 5 MG TABLET PO SCH (08:14)
[2019-05-11] MEDS: CYANOCOBALAMIN (VITAMIN B-12) 500 MCG TABLET PO SCH (08:14)
[2019-05-11] MEDS: PANTOPRAZOLE 40 MG TABLET PO SCH (08:14)
[2019-05-11] MEDS: LACTASE 1 TABLET PO SCH ×3 (08:15→21:10)
[2019-05-11] MEDS: HEPARIN 5,000 UNIT/ML VIAL SQ SCH ×2 (08:15→21:09)
[2019-05-11] MEDS: BRIMONIDINE OPHTH DROPS 1 GTT BOTTLE 5ML OU SCH ×2 (08:15→21:58)
[2019-05-11] MEDS: TIMOLOL 0.5% OPHTH DROPS BOTTLE 5ML OU SCH ×2 (08:15→21:58)
[2019-05-11] MEDS: SUCRALFATE 1 GM TABLET PO SCH ×2 (08:15→17:10)
--- NOTE | 2019-05-11 10:23 | Internal Med Progress Note ---
Medical - PN: Subj Patient information: Note initiated : 05/11/19 at 10:20 am Service Date, if different from initiated Date: [] Patient: Kayla Alvarez a 78 y/o F admitted on 05/09/19 for left hip pain. Chief Complaint: [] Interval history: Ms. Alvarez is a 78 year old F with known history of CVA with left-sided weakness who presents to [place] [facility] after getting off balance and stumbled while reaching for her walker. She sustained injuries to her left side. Subsequent evaluation at [place] [facility] revealed left intertrochanteric femur fracture along with left ankle fracture which was splinted in the ER. Orthope dics was consulted and patient was transferred to [facility] for further orthopedic intervention. Patient at baseline uses a walker from her left left hemiparesis. She carries a history of NIDDM. She denies recent cardiac surgery. She has carries a history of hypertension which is well controlled on home medications. She denies any precipitating events prior to fall including lightheadedness diz ziness thunderclap headache seizure or incontinence. She denies vision loss. Patient endorses to history as above. She denies fever chills, diarrhea, chest pain. She denies changes in medications. 05/10-postop day 1. Patient doing well. No overnight events. No significant postoperative pain. Tolerating diet. Ongoing physical therapy. No concerns expressed to nursing staff. Case management to coordinate discharge planning 05/11-doing well. No overnight events. No significant postoperative pain. Ambulating and tolerating diet. Dissipate discharge in 24 to 48 hours. Potassium 3.3 on replacement. Hemoglobin down to 8.3 from 11.7 postop no evidence of bleeding. Transfuse if less than 7.5 - Constitutional Vitals: Vital Signs Temp Pulse Resp BP Pulse Ox 98.2 F 73 20 121/63 96 05/11/19 07:29 05/11/19 04:26 05/11/19 07:29 05/11/19 07:29 05/11/19 07:29 Period Temp Pulse Resp BP Sys/Anaya Pulse Ox Last 24 Hr 97.7 F-99.2 F 73-78 16-20 104-129/50-63 96-98 Intake and Output 05/10/19 05/11/19 05/11/19 21:59 05:59 13:59 Intake Total 1979 175 Output Total 950 765 475 Balance 1030 600 -263 Weight 114 lb Intake & Output: Intake & Output 05/10/19 05/11/19 05/11/19 21:59 05:59 13:59 Intake Total 1979 175 Output Total 950 625 475 Balance 1030 600 -946 Weight 114 lb Intake: Nourishment/Supplement quantity 25 (ml) IV 1000 Sodium Chloride 0.9% 1,000 ml @ 1000 50 mls/hr IV .Q20H [facility] Rx#: [id number] Oral 980 150 Output: Urine Catheter Amount 950 495 475 Other: Meal Dinner Nourishment/Supplement Percent of Meal Consumed 25% Urine Appearance Clear Clear Urine Color Bright Yellow Bright Yellow Bright Yellow Uretheral (Antony) Pale Urine Odor Normal Normal General appearance: no acute distress Exam: Alert Nonlabored breathing No swelling or restricted motion at the operative site Chest clear to auscultation S1-S2 regular Medical - PN: Obj Da - Labs CBC & Chem 7: 05/11/19 04:23 05/11/19 04:23 Labs: Abnormal Lab Results 05/11/19 05/11/19 05/10/19 04:23 04:23 04:00 RBC 2.65 L Hgb 8.3 L Hct 25.0 L Seg Neutrophils % Lymphocytes % Potassium Glucose 137 H 248 H Calcium 8.0 L 8.5 L Phosphorus 2.6 L Alkaline Phosphatase 136 H 164 H Lactate Dehydrogenase 305 H Total Protein 5.1 L Albumin 2.6 L 2.9 L Albumin/Globulin Ratio 0.9 L 05/10/19 05/09/19 05/09/19 04:00 15:40 15:40 RBC 3.10 L 3.87 L Hgb 9.9 L 11.7 L Hct 29.2 L 35.8 L Seg Neutrophils % 88 H Lymphocytes % 9 L Potassium 3.2 L Glucose Calcium Phosphorus Alkaline Phosphatase 195 H Lactate Dehydrogenase Total Protein Albumin Albumin/Globulin Ratio Meds: Medications Acetaminophen (Tylenol) 650 mg PO Q4-6HP PRN PRN Reason: PAIN/FEVER > 101 Last Admin: 05/11/19 00:45 Dose: 650 mg Documented by: Hydrocodone Bitart/Acetaminophen ([place] 5/325mg) 1 tab PO Q4HP PRN PRN Reason: Pain Last Admin: 05/11/19 09:52 Dose: 1 tab Documented by: Amlodipine Besylate (Norvasc) 2.5 mg PO DAILY [facility] Last Admin: 05/11/19 08:14 Dose: 2.5 mg Documented by: Brimonidine Tartrate (Alphagan P Ophth Drops) 1 gtt OU BID [facility] Last Admin: 05/11/19 08:15 Dose: Not Given Documented by: Cyanocobalamin (Vitamin B-12) 1,000 mcg PO DAILY [facility] Last Admin: 05/11/19 08:14 Dose: 1,000 mcg Documented by: Docusate Sodium (Colace) 100 mg PO BID [facility] Last Admin: 05/11/19 08:14 Dose: 100 mg Documented by: Ergocalciferol (Drisdol) 50,000 unit PO WEEKLY [facility]) [facility] Admin: 05/11/19 08:14 Dose: 325 mg Documented by: Guaifenesin/Codeine Phosphate (Robitussin Ac) 10 ml PO Q4HP PRN PRN Reason: Cough Heparin Sodium (Porcine) (Heparin) 5,000 unit SQ Q12 [facility] Last Admin: 05/11/19 08:15 Dose: 5,000 unit Documented by: Hydromorphone HCl (Dilaudid) 0 mg IV Q4HP PRN PRN Reason: PAIN LEVEL > 6 Last Admin: 05/10/19 01:01 Dose: 0.5 mg Documented by: Potassium Chloride 40 meq/ (Dextrose) 520 mls @ 130 mls/hr IV UD PRN PRN Reason: K+ = or < 3.5 Magnesium Sulfate (Magnesium Sulfate) 2 gm in 50 mls @ 50 mls/hr IV UD PRN PRN Reason: MG = or < 1.7 Sodium Chloride (Sodium Chloride 0.9%) 1,000 mls @ 50 mls/hr IV .Q20H [facility] Stop: 05/12/19 07:47 Last Admin: 05/10/19 14:35 Dose: 50 mls/hr Documented by: Acetaminophen (Ofirmev) 800 mg in 80 mls @ 160 mls/hr IV Q6HP PRN PRN Reason: PAIN/FEVER > 101 Iron Carb/Multivit/Alger/Folic Acid (Multivitamin W/Minerals) 1 tab PO DAILY [facility] Last Admin: 05/11/19 08:14 Dose: 1 tab Documented by: Lactase (Lactaid) 1 tab PO TID [facility] Last Admin: 05/11/19 08:15 Dose: 1 tab Documented by: Latanoprost (Xalatan Ophth Drops) 1 gtt OU [facility] Last Admin: 05/10/19 20:58 Dose: Not Given Documented by: Lisinopril (Zestril) 20 mg PO DAILY [facility] Last Admin: 05/11/19 08:14 Dose: 20 mg Documented by: Magnesium Hydroxide (Milk Of Magnesia) 30 ml PO HSP PRN PRN Reason: Constipation Melatonin (Melatonin 3mg Tablet) 3 mg PO [facility] Last Admin: 05/10/19 20:58 Dose: 3 mg Documented by: Montelukast Sodium (Singular) 10 mg PO [facility] Last Admin: 05/10/19 20:58 Dose: 10 mg Documented by: Ondansetron HCl (Zofran) 4 mg IV Q4-6HP PRN PRN Reason: Nausea And Vomiting Pantoprazole Sodium (Protonix) 40 mg PO QAMAC [facility] Last Admin: 05/11/19 08:14 Dose: 40 mg Documented by: Polyethylene Glycol (Miralax) 17 gm PO DAILYP PRN PRN Reason: Constipation Senna/Docusate Sodium (Senna Plus Tablet) 1 tab PO [facility] Last Admin: 05/10/19 20:57 Dose: 1 tab Documented by: Sodium Chloride (Saline Flush) 10 ml IV Q8 [facility] Last Admin: 05/11/19 04:33 Dose: 10 ml Documented by: Sucralfate (Carafate) 1 gm PO BIDCC [facility] Last Admin: 05/11/19 08:15 Dose: 1 gm Documented by: Timolol Maleate (Timoptic 0.5% Ophth Drops) 1 gtt OU BID [facility] Last Admin: 05/11/19 08:15 Dose: Not Given Documented by: Trazodone HCl (Desyrel) 50 mg PO HSP PRN PRN Reason: Insomnia Medical - PN: A/P - Time Spent With Patient Total time spent is greater than 50% in coordination of care (as documented) at patient's floor/unit and/or counseling patient: 15 - 24 minutes (1) Fracture of hip Status: Acute Assessment and plan: * Left femoral neck fracture-postoperative day 2. Doing well. Management per orthopedics. Continuing PT OT * Left ankle fracture - On splint * Pain management well controlled Hospitalist consult * History of hypertension stable on home dose LETTY inhibitor/CCB * hypokalemia continue oral replacement as indicated * History of glaucoma continue brimonidine/latanoprost * GERD continue PPI/sucralfate * DM type II continue sliding-scale insulin/diabetic diet * Full code * Prophylaxis heparin Plan * Continue aggressive PT OT/rehab * Continue oral potassium replacement * Postoperative care as per orthopedics * Pre-existing well condition management as above * Case management to coordinate discharge Current Visit: Yes Medical - PN: Qual - Stroke Symptom Onset Unknown: No - VTE Deep Vein Thrombosis/Pulmonary Embolism Present on Admission: No
[2019-05-11] MEDS: 0.9 % SODIUM CHLORIDE 1,000 ML IV SCH (10:30)
[2019-05-11] MEDS: HYDROmorphone 2 MG/ML VIAL IV PRN ×2 (15:35→19:50)
--- NOTE | 2019-05-11 20:49 | XRay Report ---
CLINICAL INFORMATION: fall/pain COMPARISON: None. FINDINGS: No fracture identified. Mild diffuse osteoporosis noted. Mild patellofemoral and tibiofemoral degenerative change appreciated. No soft tissue abnormality IMPRESSION: No fracture identified. Mild degenerative change Interpreted and Authenticated by: Deandre Bryan 05/11/19
--- NOTE | 2019-05-11 20:52 | XRay Report ---
CLINICAL INFORMATION: fall/pain COMPARISON: Intraoperative films 05/09/2019. FINDINGS: Left intertrochanteric, transfixed by gamma nail, remains anatomically aligned. Fractures of the root of the left superior pubic ramus and the mid inferior pubic ramus were also seen in the intraoperative film Moderate degenerative changes noted in both SI joints. Mild degenerative change right hip joint. IMPRESSION: 1. ORIF left intertrochanteric fracture - anatomic alignment. 2. Minimally displaced fracture of the left superior pubic ramus root. 3. Nondisplaced fracture mid left inferior pubic ramus Interpreted and Authenticated by: Deandre Bryan 05/11/19
[2019-05-11] MEDS: SENNOSIDES/DOCUSATE SODIUM 1 TAB TABLET PO SCH (21:10)
[2019-05-11] MEDS: MONTELUKAST 10 MG TABLET PO SCH (21:10)
[2019-05-11] MEDS: MELATONIN 3 MG TABLET PO SCH (21:10)
[2019-05-11] MEDS: LATANOPROST OPHTH DROPS 2.5ML BOTTLE OU SCH (21:58)
[2019-05-12] MEDS: 0.9 % SODIUM CHLORIDE 10 ML SYRINGE IV SCH ×4 (00:37→20:23)
[2019-05-12] MEDS: HYDROcodone/APAP 5/325MG TABLET PO PRN ×5 (01:59→20:22)
[2019-05-12] MEDS ORDERED: POTASSIUM CHLORIDE 20 MEQ/10 ML VIAL IV ONE (02:14)
[2019-05-12 05:55] LABS: Hematocrit 26.6 % (36.0-48.0); Hemoglobin 8.9 g/dL (12.0-15.0); Mean Cell Volume 94.6 fL (80.0-100.0); Mean Corpuscular HGB Conc 33.4 g/dL (31.0-36.0); Mean Platelet Volume 9.4 fL (7.4-10.4); Platelet Count 333 K/mcL (140-440); RBC 2.81 M/mcL (4.00-5.20); Red Cell Distribution Width 13.1 % (11.5-14.5); WBC 6.6 K/mcL (4.5-11.0)
[2019-05-12 06:13] LABS: ALT/SGPT 6 U/l (0-40); AST/SGOT 13 U/l (0-37); Albumin 2.7 gm/dL (3.2-5.2); Alkaline Phosphatase 156 U/L (39-117); Bilirubin,Direct < 0.2 mg/dL (0.0-0.3); Bilirubin,Total 0.2 mg/dL (0.0-1.0); Blood Urea Nitrogen 10 mg/dl (8-23); Calcium 8.3 mg/dl (8.6-10.4); Carbon Dioxide 23 mmol/L (22-30); Chloride 108 mmol/L (96-108); Globulin 2.7 gm/dL (2.2-3.7); Glomerular Filtration Rate 94; Glucose 177 mg/dL (70-105); Lactate Dehydrogenase 232 U/L (94-250); Phosphorous 2.6 mg/dL (2.7-4.5); Triglycerides 176 mg/dl (<150); Uric Acid 2.6 mg/dL (2.5-8.0)
[2019-05-12 06:37] LABS: Eosinophils % (Manual) 4 % (0-7); Lymphocytes % 21 % (15-49); Monocytes % (Manual) 4 % (1-12); Platelet Estimate NORMAL (NORMAL); RBC Morphology NORMAL (NORMAL); Segmented Neutrophils % 71 % (38-78)
[2019-05-12] MEDS: MULTIVIT,THER IRON,CA,FA & MIN 1 TABLET PO SCH (08:52)
[2019-05-12] MEDS: FERROUS SULFATE 325 MG TABLET PO SCH (08:52)
[2019-05-12] MEDS: amLODIPine 5 MG TABLET PO SCH (08:52)
[2019-05-12] MEDS: DOCUSATE SODIUM 100 MG CAPSULE PO SCH ×2 (08:52→20:21)
[2019-05-12] MEDS: LISINOPRIL 20 MG TABLET PO SCH (08:52)
[2019-05-12] MEDS: HEPARIN 5,000 UNIT/ML VIAL SQ SCH ×2 (08:52→20:23)
[2019-05-12] MEDS: SUCRALFATE 1 GM TABLET PO SCH ×2 (08:52→16:43)
[2019-05-12] MEDS: CYANOCOBALAMIN (VITAMIN B-12) 500 MCG TABLET PO SCH (08:52)
[2019-05-12] MEDS: PANTOPRAZOLE 40 MG TABLET PO SCH (08:52)
[2019-05-12] MEDS: BRIMONIDINE OPHTH DROPS 1 GTT BOTTLE 5ML OU SCH ×2 (08:53→20:42)
[2019-05-12] MEDS: LACTASE 1 TABLET PO SCH ×3 (08:53→20:22)
[2019-05-12] MEDS: TIMOLOL 0.5% OPHTH DROPS BOTTLE 5ML OU SCH ×2 (08:53→20:42)
[2019-05-12] MEDS: ACETAMINOPHEN 325 MG TABLET PO PRN (08:53)
--- NOTE | 2019-05-12 10:14 | Internal Med Progress Note ---
Medical - PN: Subj Patient information: Note initiated : 05/12/19 at 10:12 am Service Date, if different from initiated Date: [] Patient: Kayla Alvarez a 78 y/o F admitted on 05/09/19 for left hip pain. Chief Complaint: [] Interval history: Ms. Alvarez is a 78 year old F with known history of CVA with left-sided weakness who presents to [facility] after getting off balance and stumbled while reaching for her walker. She sustained injuries to her left side. Subsequent evaluation at [facility] revealed left intertrochanteric femur fracture along with left ankle fracture which was splinted in the ER. Orthope dics was consulted and patient was transferred to [facility] for further orthopedic intervention. Patient at baseline uses a walker from her left left hemiparesis. She carries a history of NIDDM. She denies recent cardiac surgery. She has carries a history of hypertension which is well controlled on home medications. She denies any precipitating events prior to fall including lightheadedness diz ziness thunderclap headache seizure or incontinence. She denies vision loss. Patient endorses to history as above. She denies fever chills, diarrhea, chest pain. She denies changes in medications. 05/10-postop day 1. Patient doing well. No overnight events. No significant postoperative pain. Tolerating diet. Ongoing physical therapy. No concerns expressed to nursing staff. Case management to coordinate discharge planning 05/11-doing well. No overnight events. No significant postoperative pain. Ambulating and tolerating diet. Dissipate discharge in 24 to 48 hours. Potassium 3.3 on replacement. Hemoglobin down to 8.3 from 11.7 postop no evidence of bleeding. Transfuse if less than 7.5 05/12-patient fell while being assisted to bedside. X-ray no new fractures. Continue PT OT/nutrition support. Pain in good control. Case management to coordinate discharge planning. - Constitutional Vitals: Vital Signs Temp Pulse Resp BP Pulse Ox 98.2 F 78 20 134/64 99 05/12/19 07:12 05/12/19 04:14 05/12/19 07:12 05/12/19 07:12 05/12/19 07:12 Period Temp Pulse Resp BP Sys/Anaya Pulse Ox Last 24 Hr 97.3 F-98.2 F 73-78 16-20 134-174/52-66 93-99 Intake and Output 05/11/19 05/12/19 05/12/19 21:59 05:59 13:59 Intake Total 841 369 1381 Output Total 825 525 275 Balance -485 -225 725 Weight 110 lb Intake & Output: Intake & Output 05/11/19 05/12/19 05/12/19 21:59 05:59 13:59 Intake Total 265 404 8902 Output Total 825 525 275 Balance -485 -225 725 Weight 110 lb Intake: IV 1000 Sodium Chloride 0.9% 1,000 ml @ 1000 50 mls/hr IV .Q20H [facility] Rx#: [id number] Oral 340 300 Output: Void Amount 825 525 275 Other: Meal Dinner Percent of Meal Consumed 50% Feeding Ability Assist with Tray Set Up Urine Appearance Clear Urine Color Pale Bright Yellow Bright Yellow Urine Odor Normal Normal Normal General appearance: no acute distress Exam: Alert Left-sided weakness from prior stroke Left knee abrasion on dressing along with left hip fracture surgical dressing bruising. Nonlabored breathing No anxiety Medical - PN: Obj Da - Labs CBC & Chem 7: 05/12/19 04:15 05/12/19 04:15 Labs: Abnormal Lab Results 05/12/19 05/12/19 05/11/19 04:15 04:15 04:23 RBC 2.81 L Hgb 8.9 L Hct 26.6 L Seg Neutrophils % Lymphocytes % Potassium Creatinine 0.5 L Glucose 177 H 137 H Calcium 8.3 L 8.0 L Phosphorus 2.6 L 2.6 L Alkaline Phosphatase 156 H 136 H Lactate Dehydrogenase Total Protein 5.4 L 5.1 L Albumin 2.7 L 2.6 L Albumin/Globulin Ratio Triglycerides 176 H 05/11/19 05/10/19 05/10/19 04:23 04:00 04:00 RBC 2.65 L 3.10 L Hgb 8.3 L 9.9 L Hct 25.0 L 29.2 L Seg Neutrophils % 88 H Lymphocytes % 9 L Potassium Creatinine Glucose 248 H Calcium 8.5 L Phosphorus Alkaline Phosphatase 164 H Lactate Dehydrogenase 305 H Total Protein Albumin 2.9 L Albumin/Globulin Ratio 0.9 L Triglycerides 05/09/19 05/09/19 15:40 15:40 RBC 3.87 L Hgb 11.7 L Hct 35.8 L Seg Neutrophils % Lymphocytes % Potassium 3.2 L Creatinine Glucose Calcium Phosphorus Alkaline Phosphatase 195 H Lactate Dehydrogenase Total Protein Albumin Albumin/Globulin Ratio Triglycerides Meds: Medications Acetaminophen (Tylenol) 650 mg PO Q4-6HP PRN PRN Reason: PAIN/FEVER > 101 Last Admin: 05/12/19 08:53 Dose: 650 mg Documented by: Hydrocodone Bitart/Acetaminophen ([place] 5/325mg) 1 tab PO Q4HP PRN PRN Reason: Pain Last Admin: 05/12/19 05:58 Dose: 1 tab Documented by: Amlodipine Besylate (Norvasc) 2.5 mg PO DAILY [facility] Last Admin: 05/12/19 08:52 Dose: 2.5 mg Documented by: Brimonidine Tartrate (Alphagan P Ophth Drops) 1 gtt OU BID [facility] Last Admin: 05/12/19 08:53 Dose: Not Given Documented by: Cyanocobalamin (Vitamin B-12) 1,000 mcg PO DAILY [facility] Last Admin: 05/12/19 08:52 Dose: 1,000 mcg Documented by: Docusate Sodium (Colace) 100 mg PO BID [facility] Last Admin: 05/12/19 08:52 Dose: 100 mg Documented by: Ergocalciferol (Drisdol) 50,000 unit PO WEEKLY [facility] Ferrous Sulfate (Ferrous Sulfate) 325 mg PO [facility] Last Admin: 05/12/19 08:52 Dose: 325 mg Documented by: Guaifenesin/Codeine Phosphate (Robitussin Ac) 10 ml PO Q4HP PRN PRN Reason: Cough Heparin Sodium (Porcine) (Heparin) 5,000 unit SQ Q12 [facility] Last Admin: 05/12/19 08:52 Dose: 5,000 unit Documented by: Hydromorphone HCl (Dilaudid) 0 mg IV Q4HP PRN PRN Reason: PAIN LEVEL > 6 Last Admin: 05/11/19 19:50 Dose: 0.5 mg Documented by: Potassium Chloride 40 meq/ (Dextrose) 520 mls @ 130 mls/hr IV UD PRN PRN Reason: K+ = or < 3.5 Last Admin: 05/12/19 02:23 Dose: 130 mls/hr Documented by: Magnesium Sulfate (Magnesium Sulfate) 2 gm in 50 mls @ 50 mls/hr IV UD PRN PRN Reason: MG = or < 1.7 Acetaminophen (Ofirmev) 800 mg in 80 mls @ 160 mls/hr IV Q6HP PRN PRN Reason: PAIN/FEVER > 101 Iron Carb/Multivit/[place]/Folic Acid (Multivitamin W/Minerals) 1 tab PO DAILY [facility] Last Admin: 05/12/19 08:52 Dose: 1 tab Documented by: Lactase (Lactaid) 1 tab PO TID [facility] Last Admin: 05/12/19 08:53 Dose: 1 tab Documented by: Latanoprost (Xalatan Ophth Drops) 1 gtt OU [facility] Last Admin: 05/11/19 21:58 Dose: Not Given Documented by: Lisinopril (Zestril) 20 mg PO DAILY [facility] Last Admin: 05/12/19 08:52 Dose: 20 mg Documented by: Magnesium Hydroxide (Milk Of Magnesia) 30 ml PO HSP PRN PRN Reason: Constipation Melatonin (Melatonin 3mg Tablet) 3 mg PO [facility] Last Admin: 05/11/19 21:10 Dose: 3 mg Documented by: Montelukast Sodium (Singular) 10 mg PO [facility] Last Admin: 05/11/19 21:10 Dose: 10 mg Documented by: Ondansetron HCl (Zofran) 4 mg IV Q4-6HP PRN PRN Reason: Nausea And Vomiting Pantoprazole Sodium (Protonix) 40 mg PO QAMAC [facility] Last Admin: 05/12/19 08:52 Dose: 40 mg Documented by: Polyethylene Glycol (Miralax) 17 gm PO DAILYP PRN PRN Reason: Constipation Senna/Docusate Sodium (Senna Plus Tablet) 1 tab PO [facility] Last Admin: 05/11/19 21:10 Dose: 1 tab Documented by: Sodium Chloride (Saline Flush) 10 ml IV Q8 [facility] Last Admin: 05/12/19 05:59 Dose: 10 ml Documented by: Sucralfate (Carafate) 1 gm PO BIDCC [facility] Last Admin: 05/12/19 08:52 Dose: 1 gm Documented by: Timolol Maleate (Timoptic 0.5% Ophth Drops) 1 gtt OU BID [facility] Last Admin: 05/12/19 08:53 Dose: Not Given Documented by: Trazodone HCl (Desyrel) 50 mg PO HSP PRN PRN Reason: Insomnia Medical - PN: A/P - Time Spent With Patient Total time spent is greater than 50% in coordination of care (as documented) at patient's floor/unit and/or counseling patient: 25 - 35 minutes (1) Fracture of hip Status: Acute Assessment and plan: * Left femoral neck fracture-postoperative day 3. Doing well. Management per orthopedics. Continuing PT OT * Fall with no new fractures. Continue fall precautions * Left ankle fracture - On splint per orthopedics * Pain management well controlled Hospitalist consult * History of hypertension continue home dose LETTY inhibitor/CCB * hypokalemia resolved with oral replacement. Potassium 4.3 * History of glaucoma continue brimonidine/latanoprost * GERD continue PPI/sucralfate * DM type II continue sliding-scale insulin/diabetic diet * Full code * Prophylaxis heparin Plan * Continue aggressive PT OT/rehab * Continue fall precautions * Pre-existing well condition management as above * Case management to coordinate discharge likely to SNF Current Visit: Yes Medical - PN: Qual - Stroke Symptom Onset Unknown: No - VTE Deep Vein Thrombosis/Pulmonary Embolism Present on Admission: No
--- NOTE | 2019-05-12 14:23 | XRay Report ---
CLINICAL INFORMATION: pain , fall COMPARISON: None. FINDINGS: No fracture or other osseous abnormalities. Mild acromioclavicular and glenohumeral degeneration noted. No soft tissue abnormality. IMPRESSION: No fracture. Mild degenerative change Interpreted and Authenticated by: Deandre Bryan 05/12/19
[2019-05-12] MEDS: MELATONIN 3 MG TABLET PO SCH (20:21)
[2019-05-12] MEDS: MONTELUKAST 10 MG TABLET PO SCH (20:21)
[2019-05-12] MEDS: SENNOSIDES/DOCUSATE SODIUM 1 TAB TABLET PO SCH (20:42)
[2019-05-12] MEDS: LATANOPROST OPHTH DROPS 2.5ML BOTTLE OU SCH (20:42)
[2019-05-13] MEDS: HYDROcodone/APAP 5/325MG TABLET PO PRN ×5 (02:17→20:36)
[2019-05-13] MEDS: ACETAMINOPHEN 325 MG TABLET PO PRN ×3 (04:44→17:05)
[2019-05-13] MEDS: 0.9 % SODIUM CHLORIDE 10 ML SYRINGE IV SCH ×3 (04:48→20:40)
[2019-05-13 05:39] LABS: Hematocrit 28.2 % (36.0-48.0); Hemoglobin 9.5 g/dL (12.0-15.0); Mean Cell Volume 93.9 fL (80.0-100.0); Mean Corpuscular HGB Conc 33.7 g/dL (31.0-36.0); Mean Platelet Volume 9.7 fL (7.4-10.4); Platelet Count 356 K/mcL (140-440); RBC 3.01 M/mcL (4.00-5.20); Red Cell Distribution Width 13.4 % (11.5-14.5); WBC 6.8 K/mcL (4.5-11.0)
[2019-05-13 05:53] LABS: ALT/SGPT 9 U/l (0-40); AST/SGOT 11 U/l (0-37); Albumin 2.8 gm/dL (3.2-5.2); Albumin/Globulin Ratio 0.9 (1.0-2.3); Alkaline Phosphatase 155 U/L (39-117); Bilirubin,Direct < 0.2 mg/dL (0.0-0.3); Bilirubin,Total 0.3 mg/dL (0.0-1.0); Blood Urea Nitrogen 12 mg/dl (8-23); Calcium 8.5 mg/dl (8.6-10.4); Carbon Dioxide 24 mmol/L (22-30); Chloride 105 mmol/L (96-108); Glomerular Filtration Rate 94; Glucose 129 mg/dL (70-105); Lactate Dehydrogenase 209 U/L (94-250); Phosphorous 2.6 mg/dL (2.7-4.5); Triglycerides 186 mg/dl (<150); Uric Acid 2.6 mg/dL (2.5-8.0)
[2019-05-13 06:27] LABS: Band Neutrophils % 1 % (0-10); Basophils % (Manual) 1 % (0-2); Eosinophils % (Manual) 3 % (0-7); Lymphocytes % 30 % (15-49); Monocytes % (Manual) 6 % (1-12); Platelet Estimate NORMAL (NORMAL); RBC Morphology NORMAL (NORMAL); Segmented Neutrophils % 59 % (38-78)
[2019-05-13] MEDS: PANTOPRAZOLE 40 MG TABLET PO SCH (06:53)
[2019-05-13] MEDS: CYANOCOBALAMIN (VITAMIN B-12) 500 MCG TABLET PO SCH (08:20)
[2019-05-13] MEDS: MULTIVIT,THER IRON,CA,FA & MIN 1 TABLET PO SCH (08:20)
[2019-05-13] MEDS: FERROUS SULFATE 325 MG TABLET PO SCH (08:20)
[2019-05-13] MEDS: LISINOPRIL 20 MG TABLET PO SCH (08:20)
[2019-05-13] MEDS: LACTASE 1 TABLET PO SCH ×3 (08:20→20:40)
[2019-05-13] MEDS: DOCUSATE SODIUM 100 MG CAPSULE PO SCH ×2 (08:20→20:35)
[2019-05-13] MEDS: SUCRALFATE 1 GM TABLET PO SCH ×2 (08:20→17:03)
[2019-05-13] MEDS: amLODIPine 5 MG TABLET PO SCH (08:20)
[2019-05-13] MEDS: HEPARIN 5,000 UNIT/ML VIAL SQ SCH ×2 (08:20→20:35)
[2019-05-13] MEDS: BRIMONIDINE OPHTH DROPS 1 GTT BOTTLE 5ML OU SCH ×2 (08:21→19:41)
[2019-05-13] MEDS: TIMOLOL 0.5% OPHTH DROPS BOTTLE 5ML OU SCH ×2 (08:21→19:41)
[2019-05-13] MEDS ORDERED: ERGOCALCIFEROL (VITAMIN D2) 50,000 UNIT CAPSULE PO SCH (09:00)
[2019-05-13] MEDS: LATANOPROST OPHTH DROPS 2.5ML BOTTLE OU SCH (19:41)
--- NOTE | 2019-05-13 20:32 | Internal Med Progress Note ---
Medical - PN: Subj Patient information: Note initiated : 05/13/19 at 8:30 pm Service Date, if different from initiated Date: [] Patient: Kayla Alvarez a 78 y/o F admitted on 05/09/19 for left hip pain. Chief Complaint: [] Interval history: Ms. Alvarez is a 78 year old F with known history of CVA with left-sided weakness who presents to [facility] after getting off balance and stumbled while reaching for her walker. She sustained injuries to her left side. Subsequent evaluation at [facility] revealed left intertrochanteric femur fracture along with left ankle fracture which was splinted in the ER. Orthoped ics was consulted and patient was transferred to [facility] for further orthopedic intervention. Patient at baseline uses a walker from her left left hemiparesis. She carries a history of NIDDM. She denies recent cardiac surgery. She has carries a history of hypertension which is well controlled on home medications. She denies any precipitating events prior to fall including lightheadedness dizz iness thunderclap headache seizure or incontinence. She denies vision loss. Patient endorses to history as above. She denies fever chills, diarrhea, chest pain. She denies changes in medications. 05/10-postop day 1. Patient doing well. No overnight events. No significant postoperative pain. Tolerating diet. Ongoing physical therapy. No concerns expressed to nursing staff. Case management to coordinate discharge planning 05/11-doing well. No overnight events. No significant postoperative pain. Ambulating and tolerating diet. Dissipate discharge in 24 to 48 hours. Potassium 3.3 on replacement. Hemoglobin down to 8.3 from 11.7 postop no evidence of bleeding. Transfuse if less than 7.5 05/12-patient fell while being assisted to bedside. X-ray no new fractures. Continue PT OT/nutrition support. Pain in good control. Case management to coordinate discharge planning. 05/13-patient doing well. Anticipate discharge in 24 hours. No overnight events. Imaging left shoulder no evidence of fracture. Tolerating physical therapy and diet. Anticipate SNF transfer if family agreeable - Constitutional Vitals: Vital Signs Temp Pulse Resp BP Pulse Ox 98.1 F 85 18 142/71 97 05/13/19 19:42 05/13/19 19:42 05/13/19 19:42 05/13/19 19:42 05/13/19 19:42 Period Temp Pulse Resp BP Sys/Anaya Pulse Ox Last 24 Hr 97.3 F-98.3 F 70-85 16-20 113-160/55-72 96-99 Intake and Output 05/13/19 05/13/19 05/13/19 05:59 13:59 21:59 Intake Total 565 424 8992 Output Total 698 622 4585 Balance 0 -575 -50 Weight 105 lb 8 oz Patient Weight 05/14/19 05:59 Weight 105 lb 8 oz Intake & Output: Intake & Output 05/13/19 05/13/19 05/13/19 05:59 13:59 21:59 Intake Total 224 167 1134 Output Total 102 258 1675 Balance 0 -575 -50 Weight 105 lb 8 oz Intake: Oral 885 560 9295 Output: Void Amount 510 660 6349 Other: Meal Lunch Dinner Percent of Meal Consumed 50% 75% Feeding Ability Assist with Tray Set Up Urine Appearance Clear Urine Color Bright Yellow Bright Yellow Urine Odor Normal Normal General appearance: no acute distress Exam: Poorly mobile left arm due to pain No postoperative site swelling or pain Minimal anxiety Nonlabored breathing Medical - PN: Obj Da - Labs CBC & Chem 7: 05/13/19 03:33 05/13/19 03:33 Labs: Abnormal Lab Results 05/13/19 05/13/19 05/12/19 03:33 03:33 04:15 RBC 3.01 L Hgb 9.5 L Hct 28.2 L Creatinine 0.5 L 0.5 L Glucose 129 H 177 H Calcium 8.5 L 8.3 L Phosphorus 2.6 L 2.6 L Alkaline Phosphatase 155 H 156 H Total Protein 5.8 L 5.4 L Albumin 2.8 L 2.7 L Albumin/Globulin Ratio 0.9 L Triglycerides 186 H 176 H 05/12/19 05/11/19 05/11/19 04:15 04:23 04:23 RBC 2.81 L 2.65 L Hgb 8.9 L 8.3 L Hct 26.6 L 25.0 L Creatinine Glucose 137 H Calcium 8.0 L Phosphorus 2.6 L Alkaline Phosphatase 136 H Total Protein 5.1 L Albumin 2.6 L Albumin/Globulin Ratio Triglycerides Meds: Medications Acetaminophen (Tylenol) 650 mg PO Q4-6HP PRN PRN Reason: PAIN/FEVER > 101 Last Admin: 05/13/19 17:05 Dose: 650 mg Documented by: Hydrocodone Bitart/Acetaminophen ([place] 5/325mg) 1 - 2 tab PO Q4HP PRN PRN Reason: Pain Last Admin: 05/13/19 14:54 Dose: 2 tab Documented by: Amlodipine Besylate (Norvasc) 2.5 mg PO DAILY [facility] Last Admin: 05/13/19 08:20 Dose: 2.5 mg Documented by: Brimonidine Tartrate (Alphagan P Ophth Drops) 1 gtt OU BID [facility] Last Admin: 05/13/19 19:41 Dose: Not Given Documented by: Cyanocobalamin (Vitamin B-12) 1,000 mcg PO DAILY [facility] Last Admin: 05/13/19 08:20 Dose: 1,000 mcg Documented by: Docusate Sodium (Colace) 100 mg PO BID [facility] Last Admin: 05/13/19 08:20 Dose: 100 mg Documented by: Ergocalciferol (Drisdol) 50,000 unit PO WEEKLY [facility]ous Sulfate ([facility]) [facility] Last Admin: 05/13/19 08:20 Dose: 325 mg Documented by: Guaifenesin/Codeine Phosphate (Robitussin Ac) 10 ml PO Q4HP PRN PRN Reason: Cough Heparin Sodium (Porcine) (Heparin) 5,000 unit SQ Q12 [facility] Last Admin: 05/13/19 08:20 Dose: 5,000 unit Documented by: Hydromorphone HCl (Dilaudid) 0 mg IV Q4HP PRN PRN Reason: PAIN LEVEL > 6 Last Admin: 05/11/19 19:50 Dose: 0.5 mg Documented by: Potassium Chloride 40 meq/ (Dextrose) 520 mls @ 130 mls/hr IV UD PRN PRN Reason: K+ = or < 3.5 Last Infusion: 05/12/19 06:30 Dose: Infused Documented by: Magnesium Sulfate (Magnesium Sulfate) 2 gm in 50 mls @ 50 mls/hr IV UD PRN PRN Reason: MG = or < 1.7 Last Infusion: 05/12/19 21:30 Dose: Infused Documented by: Acetaminophen (Ofirmev) 800 mg in 80 mls @ 160 mls/hr IV Q6HP PRN PRN Reason: PAIN/FEVER > 101 Iron Carb/Multivit/[place]/Folic Acid (Multivitamin W/Minerals) 1 tab PO DAILY [facility] Last Admin: 05/13/19 08:20 Dose: 1 tab Documented by: Lactase (Lactaid) 1 tab PO TID [facility] Last Admin: 05/13/19 14:57 Dose: 1 tab Documented by: Latanoprost (Xalatan Ophth Drops) 1 gtt OU HS [facility] Last Admin: 05/13/19 19:41 Dose: Not Given Documented by: Lisinopril (Zestril) 20 mg PO DAILY [facility] Last Admin: 05/13/19 08:20 Dose: 20 mg Documented by: Magnesium Hydroxide (Milk Of Magnesia) 30 ml PO HSP PRN PRN Reason: Constipation Last Admin: 05/12/19 22:00 Dose: 30 ml Documented by: Melatonin (Melatonin 3mg Tablet) 3 mg PO [facility] Last Admin: 05/12/19 20:21 Dose: 3 mg Documented by: Montelukast Sodium (Singular) 10 mg PO [facility] Last Admin: 05/12/19 20:21 Dose: 10 mg Documented by: Ondansetron HCl (Zofran) 4 mg IV Q4-6HP PRN PRN Reason: Nausea And Vomiting Pantoprazole Sodium (Protonix) 40 mg PO QAMAC [facility] Last Admin: 05/13/19 06:53 Dose: 40 mg Documented by: Polyethylene Glycol (Miralax) 17 gm PO DAILYP PRN PRN Reason: Constipation Senna/Docusate Sodium (Senna Plus Tablet) 1 tab PO [facility] Last Admin: 05/12/19 20:42 Dose: 1 tab Documented by: Sodium Chloride (Saline Flush) 10 ml IV Q8 [facility] Last Admin: 05/13/19 14:55 Dose: 10 ml Documented by: Sucralfate (Carafate) 1 gm PO BIDCC [facility] Last Admin: 05/13/19 17:03 Dose: 1 gm Documented by: Timolol Maleate (Timoptic 0.5% Ophth Drops) 1 gtt OU BID [facility] Last Admin: 05/13/19 19:41 Dose: Not Given Documented by: Trazodone HCl (Desyrel) 50 mg PO HSP PRN PRN Reason: Insomnia Medical - PN: A/P - Time Spent With Patient Total time spent is greater than 50% in coordination of care (as documented) at patient's floor/unit and/or counseling patient: 15 - 24 minutes (1) Fracture of hip Status: Acute Assessment and plan: * Left femoral neck fracture-postoperative day 4. Continuing PT OT. Anticipate discharge in 24 hours to SNF * Fall with no new fractures. Continue fall precautions * Left ankle fracture - On splint per orthopedics * Pain management well controlled Hospitalist consult * History of hypertension continue home dose LETTY inhibitor/CCB * hypokalemia resolved with oral replacement. Potassium 4.3 * History of glaucoma continue brimonidine/latanoprost * GERD continue PPI/sucralfate * DM type II continue sliding-scale insulin/diabetic diet * Full code * Prophylaxis heparin Plan * Continue daily rehab. Anticipate SNF transfer in 24 hours * Continue fall precautions * Pre-existing well condition management as above Current Visit: Yes Medical - PN: Qual - Stroke Symptom Onset Unknown: No - VTE Deep Vein Thrombosis/Pulmonary Embolism Present on Admission: No
[2019-05-13] MEDS: MONTELUKAST 10 MG TABLET PO SCH (20:36)
[2019-05-13] MEDS: MELATONIN 3 MG TABLET PO SCH (20:36)
[2019-05-13] MEDS: SENNOSIDES/DOCUSATE SODIUM 1 TAB TABLET PO SCH (20:36)
[2019-05-14] MEDS: 0.9 % SODIUM CHLORIDE 10 ML SYRINGE IV SCH (05:39)
[2019-05-14 05:40] LABS: Hematocrit 27.5 % (36.0-48.0); Hemoglobin 9.2 g/dL (12.0-15.0); Mean Cell Volume 94.7 fL (80.0-100.0); Mean Corpuscular HGB Conc 33.3 g/dL (31.0-36.0); Mean Platelet Volume 9.2 fL (7.4-10.4); Platelet Count 359 K/mcL (140-440); Red Cell Distribution Width 13.4 % (11.5-14.5); WBC 5.5 K/mcL (4.5-11.0)
[2019-05-14 06:04] LABS: ALT/SGPT 9 U/l (0-40); AST/SGOT 13 U/l (0-37); Albumin/Globulin Ratio 1.1 (1.0-2.3); Alkaline Phosphatase 158 U/L (39-117); Bilirubin,Direct < 0.2 mg/dL (0.0-0.3); Bilirubin,Total 0.2 mg/dL (0.0-1.0); Blood Urea Nitrogen 12 mg/dl (8-23); Calcium 8.4 mg/dl (8.6-10.4); Carbon Dioxide 25 mmol/L (22-30); Chloride 105 mmol/L (96-108); Globulin 2.7 gm/dL (2.2-3.7); Glomerular Filtration Rate 89; Glucose 125 mg/dL (70-105); Lactate Dehydrogenase 214 U/L (94-250); Triglycerides 184 mg/dl (<150); Uric Acid 2.7 mg/dL (2.5-8.0)
[2019-05-14] MEDS: HYDROcodone/APAP 5/325MG TABLET PO PRN ×2 (06:58→13:30)
[2019-05-14] MEDS: PANTOPRAZOLE 40 MG TABLET PO SCH (06:58)
--- NOTE | 2019-05-14 07:27 | Discharge Summary ---
Providers - Providers Patient information: Note initiated : 05/14/19 at 7:25 am Service Date, if different from initiated Date: [] Patient: Kayla Alvarez 78 y/o F admitted on 05/09/19 for left hip pain. Chief Complaint: [POD #5 s/p left hip gamma nail Patient doing well from a pain standpoint. 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 She denies numbness, tingling, calf pain.] Discharge date: 05/14/19 orthopedics Hospitalization Hospital Course: Patient was brought to hospital last week and found to have left hip fracture which was operated on by Dr. Gillette. She has been inpatient and followed by hospitalist since for medical care. She will discharge today to rehab and follow up in 10 days for post op care. Discharge diagnosis: hip fracture Exam - Exam Incision healing: Yes Incision draining: No Incision red: No Incision swollen: No Incision inflamed: No Clean and dry: Yes Weight bearing status: partial Ortho Discharge Plan - General - Patient Instructions Diet: Regular Diet Activity: partial weight bearing, other (with assistance only) Dressing Care: Aquacel Ag - leave on for 5 days, Other (then transition to gauze) Patient Education: Hip Fracture (ED) Additional Instructions: Patient is being admitted to the hospital under the care of both the engineering specialist technician and the hospitalist. All other treatment decisions and orders will be carried out by them. - Follow Up Plan Follow Up Appointments: No,PCP [Referring] - Disposition: Xfer SNF Prognosis: Fair Rehab Potential: Fair I certify that the patient requires SNF services: Yes Overall status at discharge: patient is not back to baseline - Orders For Discharge Prescriptions: HYDROcodone/APAP 5/325MG [[place] 5-325Mg] 1 - 2 tab PO Q4HP PRN #60 tab PRN Reason: Pain Prescription Printed Additional Discharge Orders: Physical Therapy at Discharge - General Location: None Selected Walker Location: None Selected Pending Studies Resuscitation Status Full Code Diet Regular Diet Start MonMay 108 Acetaminophen (Tylenol) 650 mg PO Q4-6HP PRN PRN Reason: PAIN/FEVER > 101 Last Admin: 05/13/19 17:05 Dose: 650 mg Documented by: [email or web address] Admin: 05/13/19 10:16 Dose: 650 mg Documented by: [email or web address] Admin: 05/13/19 04:44 Dose: 650 mg Documented by: Admin: 05/12/19 08:53 Dose: 650 mg Documented by: Admin: 05/11/19 17:10 Dose: 650 mg Documented by: Admin: 05/11/19 00:45 Dose: 650 mg Documented by: Admin: 05/10/19 16:21 Dose: 650 mg Documented by: [email or web address] Hydrocodone Bitart/Acetaminophen ([place] 5/325mg) 1 - 2 tab PO Q4HP PRN PRN Reason: Pain Last Admin: 05/14/19 06:58 Dose: 2 tab Documented by: Admin: 05/13/19 20:36 Dose: 2 tab Documented by: Admin: 05/13/19 14:54 Dose: 2 tab Documented by: Admin: 05/13/19 11:12 Dose: 2 tab Documented by: Admin: 05/13/19 06:53 Dose: 2 tab Documented by: Admin: 05/13/19 02:17 Dose: 2 tab Documented by: Admin: 05/12/19 20:22 Dose: 2 tab Documented by: Admin: 05/12/19 16:43 Dose: 2 tab Documented by: Admin: 05/12/19 10:27 Dose: 2 tab Documented by: SABRA Amlodipine Besylate (Norvasc) 2.5 mg PO DAILY COUNTS INCLUDE 234 BEDS AT THE [facility] Last Admin: 05/13/19 08:20 Dose: 2.5 mg Documented by: Admin: 05/12/19 08:52 Dose: 2.5 mg Documented by: Admin: 05/11/19 08:14 Dose: 2.5 mg Documented by: Admin: 05/10/19 08:11 Dose: 2.5 mg Documented by: NABMandie Brimonidine Tartrate (Alphagan P Ophth Drops) 1 gtt OU BID COUNTS INCLUDE 234 BEDS AT [facility] Last Admin: 05/13/19 19:41 Dose: Not Given Documented by: Admin: 05/13/19 08:21 Dose: Not Given Documented by: Admin: 05/12/19 20:42 Dose: Not Given Documented by: Admin: 05/12/19 08:53 Dose: Not Given Documented by: Admin: 05/11/19 21:58 Dose: Not Given Documented by: Admin: 05/11/19 08:15 Dose: Not Given Documented by: Admin: 05/10/19 20:58 Dose: Not Given Documented by: Admin: 05/10/19 08:16 Dose: Not Given Documented by: Admin: 05/09/19 20:49 Dose: Not Given Documented by: MADYSON Cyanocobalamin (Vitamin B-12) 1,000 mcg PO DAILY COUNTS INCLUDE 234 BEDS AT [facility] Last Admin: 05/13/19 08:20 Dose: 1,000 mcg Documented by: [email or web address] Admin: 05/12/19 08:52 Dose: 1,000 mcg Documented by: Admin: 05/11/19 08:14 Dose: 1,000 mcg Documented by: Admin: 05/10/19 08:12 Dose: 1,000 mcg Documented by: VERONICA Docusate Sodium (Colace) 100 mg PO BID COUNTS INCLUDE 234 BEDS AT [facility] Last Admin: 05/13/19 20:35 Dose: 100 mg Documented by: Admin: 05/13/19 08:20 Dose: 100 mg Documented by: Admin: 05/12/19 20:21 Dose: 100 mg Documented by: Admin: 05/12/19 08:52 Dose: 100 mg Documented by: Admin: 05/11/19 21:10 Dose: 100 mg Documented by: Admin: 05/11/19 08:14 Dose: 100 mg Documented by: Admin: 05/10/19 20:57 Dose: 100 mg Documented by: Admin: 05/10/19 08:12 Dose: 100 mg Documented by: Admin: 05/09/19 20:47 Dose: 100 mg Documented by: MADYSON Ferrous Sulfate (Ferrous Sulfate) 325 mg PO [facility] Last Admin: 05/13/19 08:20 Dose: 325 mg Documented by: [email or web address] Admin: 05/12/19 08:52 Dose: 325 mg Documented by: Admin: 05/11/19 08:14 Dose: 325 mg Documented by: Admin: 05/10/19 07:37 Dose: 325 mg Documented by: VERONICA Heparin Sodium (Porcine) (Heparin) 5,000 unit SQ Q12 COUNTS INCLUDE 234 BEDS AT THE [facility] Last Admin: 05/13/19 20:35 Dose: 5,000 unit Documented by: Admin: 05/13/19 08:20 Dose: 5,000 unit Documented by: [id number] Admin: 05/12/19 20:23 Dose: 5,000 unit Documented by: Admin: 05/12/19 08:52 Dose: 5,000 unit Documented by: Admin: 05/11/19 21:09 Dose: 5,000 unit Documented by: Admin: 05/11/19 08:15 Dose: 5,000 unit Documented by: Admin: 05/10/19 20:57 Dose: 5,000 unit Documented by: Admin: 05/10/19 08:11 Dose: 5,000 unit Documented by: Admin: 05/09/19 20:47 Dose: 5,000 unit Documented by: MADYSON Hydromorphone HCl (Dilaudid) 0 mg IV Q4HP PRN PRN Reason: PAIN LEVEL > 6 Last Admin: 05/11/19 19:50 Dose: 0.5 mg Documented by: Admin: 05/11/19 15:35 Dose: 0.5 mg Documented by: Admin: 05/10/19 01:01 Dose: 0.5 mg Documented by: MADYSON Potassium Chloride 40 meq/ (Dextrose) 520 mls @ 130 mls/hr IV UD PRN PRN Reason: K+ = or < 3.5 Last Infusion: 05/12/19 06:30 Dose: 0 mls/hr Documented by: Admin: 05/12/19 02:23 Dose: 130 mls/hr Documented by: ARIELLE Magnesium Sulfate (Magnesium Sulfate) 2 gm in 50 mls @ 50 mls/hr IV UD PRN PRN Reason: MG = or < 1.7 Last Infusion: 05/12/19 21:30 Dose: 0 mls/hr Documented by: Admin: 05/12/19 20:23 Dose: 50 mls/hr Documented by: ARIELLE Iron Carb/Multivit/[place]/Folic Acid (Multivitamin W/Minerals) 1 tab PO DAILY COUNTS INCLUDE 234 BEDS AT [facility] Last Admin: 05/13/19 08:20 Dose: 1 tab Documented by: [email or web address] Admin: 05/12/19 08:52 Dose: 1 tab Documented by: Admin: 05/11/19 08:14 Dose: 1 tab Documented by: Admin: 05/10/19 08:11 Dose: 1 tab Documented by: VERONICA Lactase (Lactaid) 1 tab PO TID COUNTS INCLUDE 234 BEDS AT [facility] Last Admin: 05/13/19 20:40 Dose: Not Given Documented by: Admin: 05/13/19 14:57 Dose: 1 tab Documented by: Admin: 05/13/19 08:20 Dose: 1 tab Documented by: Admin: 05/12/19 20:22 Dose: 1 tab Documented by: Admin: 05/12/19 15:21 Dose: 1 tab Documented by: Admin: 05/12/19 08:53 Dose: 1 tab Documented by: Admin: 05/11/19 21:10 Dose: 1 tab Documented by: Admin: 05/11/19 13:59 Dose: 1 tab Documented by: Admin: 05/11/19 08:15 Dose: 1 tab Documented by: Admin: 05/10/19 20:57 Dose: 1 tab Documented by: Admin: 05/10/19 14:26 Dose: 1 tab Documented by: Admin: 05/10/19 11:59 Dose: Not Given Documented by: Admin: 05/09/19 20:55 Dose: Not Given Documented by: MADYSON Latanoprost (Xalatan Ophth Drops) 1 gtt OU HS COUNTS INCLUDE 234 BEDS AT [facility] Last Admin: 05/13/19 19:41 Dose: Not Given Documented by: Admin: 05/12/19 20:42 Dose: Not Given Documented by: Admin: 05/11/19 21:58 Dose: Not Given Documented by: Admin: 05/10/19 20:58 Dose: Not Given Documented by: Admin: 05/09/19 20:49 Dose: Not Given Documented by: MADYSON Lisinopril (Zestril) 20 mg PO DAILY COUNTS INCLUDE 234 BEDS AT [facility] Last Admin: 05/13/19 08:20 Dose: 20 mg Documented by: [email or web address] Admin: 05/12/19 08:52 Dose: 20 mg Documented by: Admin: 05/11/19 08:14 Dose: 20 mg Documented by: Admin: 05/10/19 08:11 Dose: 20 mg Documented by: NABMandie Magnesium Hydroxide (Milk Of Magnesia) 30 ml PO HSP PRN PRN Reason: Constipation Last Admin: 05/12/19 22:00 Dose: 30 ml Documented by: ARIELLE Melatonin (Melatonin 3mg Tablet) 3 mg PO [facility] Last Admin: 05/13/19 20:36 Dose: 3 mg Documented by: Admin: 05/12/19 20:21 Dose: 3 mg Documented by: Admin: 05/11/19 21:10 Dose: 3 mg Documented by: Admin: 05/10/19 20:58 Dose: 3 mg Documented by: Admin: 05/09/19 20:48 Dose: 3 mg Documented by: MADYSON Montelukast Sodium (Singular) 10 mg PO [facility] Last Admin: 05/13/19 20:36 Dose: 10 mg Documented by: Admin: 05/12/19 20:21 Dose: 10 mg Documented by: Admin: 05/11/19 21:10 Dose: 10 mg Documented by: Admin: 05/10/19 20:58 Dose: 10 mg Documented by: Admin: 05/09/19 20:48 Dose: 10 mg Documented by: MADYSON Pantoprazole Sodium (Protonix) 40 mg PO [facility] Last Admin: 05/14/19 06:58 Dose: 40 mg Documented by: [email or web address] Admin: 05/13/19 06:53 Dose: 40 mg Documented by: [email or web address] Admin: 05/12/19 08:52 Dose: 40 mg Documented by: Admin: 05/11/19 08:14 Dose: 40 mg Documented by: Admin: 05/10/19 07:18 Dose: 40 mg Documented by: VERONICA Senna/Docusate Sodium (Senna Plus Tablet) 1 tab PO [facility] Last Admin: 05/13/19 20:36 Dose: 1 tab Documented by: Admin: 05/12/19 20:42 Dose: 1 tab Documented by: Admin: 05/11/19 21:10 Dose: 1 tab Documented by: Admin: 05/10/19 20:57 Dose: 1 tab Documented by: Admin: 05/09/19 20:48 Dose: 1 tab Documented by: MADYSON Sodium Chloride (Saline Flush) 10 ml IV Q8 [facility] Admin: 05/14/19 05:39 Dose: 10 ml Documented by: Admin: 05/13/19 20:40 Dose: 10 ml Documented by: Admin: 05/13/19 14:55 Dose: 10 ml Documented by: Admin: 05/13/19 04:48 Dose: 10 ml Documented by: Admin: 05/12/19 20:23 Dose: 10 ml Documented by: Admin: 05/12/19 12:09 Dose: 10 ml Documented by: Admin: 05/12/19 05:59 Dose: 10 ml Documented by: Admin: 05/12/19 00:37 Dose: Not Given Documented by: Admin: 05/11/19 13:45 Dose: Not Given Documented by: Admin: 05/11/19 04:33 Dose: 10 ml Documented by: Admin: 05/10/19 20:58 Dose: 10 ml Documented by: Admin: 05/10/19 13:18 Dose: Not Given Documented by: Admin: 05/10/19 05:37 Dose: Not Given Documented by: Admin: 05/09/19 23:17 Dose: Not Given Documented by: MADYSON Sucralfate (Carafate) 1 gm PO BIDCC [facility] Admin: 05/13/19 17:03 Dose: 1 gm Documented by: Admin: 05/13/19 08:20 Dose: 1 gm Documented by: Admin: 05/12/19 16:43 Dose: 1 gm Documented by: Admin: 05/12/19 08:52 Dose: 1 gm Documented by: Admin: 05/11/19 17:10 Dose: 1 gm Documented by: Admin: 05/11/19 08:15 Dose: 1 gm Documented by: Admin: 05/10/19 16:54 Dose: 1 gm Documented by: [email or web address] Admin: 05/10/19 07:37 Dose: 1 gm Documented by: VERONICA Timolol Maleate (Timoptic 0.5% Ophth Drops) 1 gtt OU BID [facility] Last Admin: 05/13/19 19:41 Dose: Not Given Documented by: Admin: 05/13/19 08:21 Dose: Not Given Documented by: [email or web address] Admin: 05/12/19 20:42 Dose: Not Given Documented by: Admin: 05/12/19 08:53 Dose: Not Given Documented by: Admin: 05/11/19 21:58 Dose: Not Given Documented by: Admin: 05/11/19 08:15 Dose: Not Given Documented by: Admin: 05/10/19 20:58 Dose: Not Given Documented by: Admin: 05/10/19 08:54 Dose: Not Given Documented by: Admin: 05/09/19 20:49 Dose: Not Given Documented by: MADYSON Trazodone HCl (Desyrel) 50 mg PO HSP PRN PRN Reason: Insomnia Last Admin: 05/13/19 20:35 Dose: 50 mg Documented by: [facility] Shift Summary 05/14/19 03:31 Shift Summary by Halley Cunningham 78 year old female here for left hip gamma nail repair. hx cva with left side deficits. Patient alert and oriented. Forgetful at times. Medicated with [place] 2 tabs x 1 this shift with good effect. Pt had a restful noc. Joselin Steady used for generalized weakness. saline locked. Aquacel dressing on left hip CDI. mepilex dressing to sacral for protection. Turned every 2 hours this shift. VSS. d/c to [facility] and rehab today. Initialized on 05/14/19 03:31 - END OF NOTE
[2019-05-14] MEDS: MULTIVIT,THER IRON,CA,FA & MIN 1 TABLET PO SCH (08:11)
[2019-05-14] MEDS: HEPARIN 5,000 UNIT/ML VIAL SQ SCH (08:11)
[2019-05-14] MEDS: LISINOPRIL 20 MG TABLET PO SCH (08:11)
[2019-05-14] MEDS: amLODIPine 5 MG TABLET PO SCH (08:11)
[2019-05-14] MEDS: FERROUS SULFATE 325 MG TABLET PO SCH (08:11)
[2019-05-14] MEDS: DOCUSATE SODIUM 100 MG CAPSULE PO SCH ×2 (08:11→08:20)
[2019-05-14] MEDS: SUCRALFATE 1 GM TABLET PO SCH (08:11)
[2019-05-14] MEDS: CYANOCOBALAMIN (VITAMIN B-12) 500 MCG TABLET PO SCH (08:11)
[2019-05-14] MEDS: LACTASE 1 TABLET PO SCH (08:11)
[2019-05-14] MEDS: TIMOLOL 0.5% OPHTH DROPS BOTTLE 5ML OU SCH (08:12)
[2019-05-14] MEDS: BRIMONIDINE OPHTH DROPS 1 GTT BOTTLE 5ML OU SCH (08:12)
[2019-05-14 08:13] LABS: Eosinophils % (Manual) 3 % (0-7); Lymphocytes % 22 % (15-49); Monocytes % (Manual) 7 % (1-12); Platelet Estimate NORMAL (NORMAL); RBC Morphology NORMAL (NORMAL); Segmented Neutrophils % 68 % (38-78)
--- NOTE | 2019-05-14 10:04 | Discharge Summary ---
Medical - DS: Prov Patient information: Note initiated : 05/14/19 at 10:00 am Service Date, if different from initiated Date: [] Patient: Kayla Alvarez 78 y/o F admitted on 05/09/19 for left hip pain. Chief Complaint: [] Date of admission: 05/09/19 19:20 Discharge date: 05/14/19 Consults: 05/09/19 Consult to Physician [CONS] Stat Comment: Consulting Provider: Puneet Fontaine Reason For Exam: Physician to Consult Consult to Physician [CONS] Stat Comment: Consulting Provider: Thong Gillette Reason For Exam: Physician to Consult Medical - DS: Meds - Discharge Medications Prescriptions: HYDROcodone/APAP 5/325MG [[place] 5-325Mg] 1 - 2 tab PO Q4HP PRN #60 tab PRN Reason: Pain Prescription Printed Active and Home Medications: Home Medications Brimonidine Tartrate [Lumify] 2.5 ml OP BID 05/09/19 [History Confirmed 05/09/19 Last Taken Unknown] Cyanocobalamin (Vitamin B-12) [Vitamin B-12] 1,000 mcg PO DAILY 05/09/19 [History Confirmed 05/09/19 Last Taken Unknown] Ergocalciferol (Vitamin D2) [Vitamin D2] 50,000 unit PO WEEKLY 05/09/19 [History Confirmed 05/10/19 Last Taken 05/05/19] Ferrous Sulfate 325 mg PO DAILY 05/09/19 [History Confirmed 05/09/19 Last Taken Unknown] Lactase [Ultra Dairy Digestive] 9,000 unit PO TID 05/09/19 [History Confirmed 05/09/19 Last Taken Unknown] Latanoprost/Pf [Latanoprost 0.005% Eye Drop] 7.5 ml OP HS 05/09/19 [History Confirmed 05/09/19 Last Taken Unknown] Lisinopril [Zestril] 20 mg PO DAILY 05/09/19 [History Confirmed 05/09/19 Last Taken Unknown] Melatonin 5 mg PO HS 05/09/19 [History Confirmed 05/09/19 Last Taken Unknown] Montelukast Sodium [Singulair] 10 mg PO HS 05/09/19 [History Confirmed 05/09/19 Last Taken Unknown] Pantoprazole Sodium [Protonix] 40 mg PO DAILY 05/09/19 [History Confirmed 04/28 10/16 Last Taken Unknown] Polyethylene Glycol 3350 [Clearlax] 17 gm PO DAILYP PRN 05/09/19 [History Confirmed 05/09/19 Last Taken Unknown] Sucralfate [Carafate] 1 gm PO BIDCC 05/09/19 [History Confirmed 05/09/19 Last Taken Unknown] Timolol 0.5% Ophth Drops [Tim[place] 0.5% Ophth Drops] 1 gtt OU BID 05/09/19 [History Confirmed 05/09/19 Last Taken Unknown] amLODIPine BESYLATE [Norvasc] 2.5 mg PO DAILY 05/09/19 [History Confirmed 05/09/19 Last Taken Unknown] HYDROcodone/APAP 5/325MG [[place] 5-325Mg] 1 - 2 tab PO Q4HP PRN #60 tab 05/14/19 [Rx Last Taken Unknown] Medical - DS: Hosp Hospital Course: Patient was brought to hospital last week and found to have left hip fracture which was operated on by Dr. Gillette. She has been inpatient and followed by hospitalist since for medical care. She will discharge today to rehab and follow up in 10 days for post op care. Discharge diagnosis: . Secondary discharge diagnosis: Discharge diagnosis * Left femoral neck fracture-postoperative day 4. Transferring to SNF for continued posthospitalization PT OT/rehab * Fall with no new fractures on imaging. Continue fall precautions * Left ankle fracture -continue on splint per orthopedics. Follow-up orthopedics as outpatient * Pain management remained well controlled on as needed opioids Hospitalist consult * History of hypertension managed on home dose LETTY inhibitor/CCB * hypokalemia resolved with oral replacement. Potassium normalized * History of glaucoma continue brimonidine/latanoprost * GERD continue PPI/sucralfate * DM type II continue sliding-scale insulin/diabetic diet Brief hospital course Ms. Alvarez is a 78 year old F with known history of CVA with left-sided weakness who presents to [facility] after getting off balance and stumbled while reaching for her walker. She sustained injuries to her left side. Subsequent evaluation at [facility] revealed left intertrochanteric femur fracture along with left ankle fracture which was splinted in the ER. Orthopedics was consulted and patient was transferred to [facility] for further orthopedic intervention. Patient at baseline uses a walker from her left left hemiparesis. She carries a history of NIDDM. She denies recent cardiac surgery. She has carries a history of hypertension which is well controlled on home medications. She denies any precipitating events prior to fall including lightheadedness dizziness thunderclap headache seizure or incontinence. She denies vision loss. Patient endorses to history as above. She denies fever chills, diarrhea, chest pain. She denies changes in medications. 05/10-postop day 1. Patient doing well. No overnight events. No significant postoperative pain. Tolerating diet. Ongoing physical therapy. No concerns expressed to nursing staff. Case management to coordinate discharge planning 05/11-doing well. No overnight events. No significant postoperative pain. Ambulating and tolerating diet. Dissipate discharge in 24 to 48 hours. Potassium 3.3 on replacement. Hemoglobin down to 8.3 from 11.7 postop no evidence of bleeding. Transfuse if less than 7.5 05/12-patient fell while being assisted to bedside. X-ray no new fractures. Continue PT OT/nutrition support. Pain in good control. Case management to coordinate discharge planning. 05/13-patient doing well. Anticipate discharge in 24 hours. No overnight events. Imaging left shoulder no evidence of fracture. Tolerating physical therapy and diet. Anticipate SNF transfer if family agreeable 05/14-patient doing well. No overnight events. No concerns per staff. Discharging to SNF today. Patient remains weak with significant motor deficit from prior stroke/recent surgery quite aggressive rehab while at care facility. Discharge instructions as below - Time Spent with Patient Total time spent providing and/or coordinating discharge services: Medical - DS: Exam - Constitutional Vitals: Vital Signs Temp Pulse Resp BP BP Pulse Ox 05/14/19 08:00 97.0 F 86 16 125/70 94 05/14/19 03:59 97.8 F 86 16 134/79 98 05/13/19 23:45 97.5 F 86 20 118/54 97 05/13/19 19:42 98.1 F 85 18 142/71 97 05/13/19 19:00 80 18 97 05/13/19 16:00 97.8 F 80 18 134/63 97 05/13/19 11:57 98.3 F 82 18 150/72 99 Intake and Output 05/13/19 05/14/19 05/14/19 21:59 05:59 13:59 Intake Total 1000 240 Output Total 1150 600 550 Balance -150 -600 -310 Intake: Oral 1000 240 Output: Void Amount 1150 600 550 Other: Meal Dinner Breakfast Percent of Meal Consumed 75% 50% Urine Appearance Clear Urine Color Bright Yellow Urine Odor Normal Weight 105 lb 8 oz Medical - DS: Data Labs on day of discharge: Labs from last 24 hours 05/14/19 05/14/19 04:05 04:05 WBC 5.5 RBC 2.90 L Hgb 9.2 L Hct 27.5 L MCV 94.7 MCH 31.5 MCHC 33.3 RDW 13.4 Plt Count 359 MPV 9.2 Total Counted 100 Seg Neutrophils % 68 Band Neutrophils % Not Reportable Lymphocytes % 22 Monocytes % (Manual) 7 Eosinophils % (Manual) 3 Platelet Estimate Normal RBC Morphology Normal Sodium 140 Potassium 3.7 Chloride 105 Carbon Dioxide 25 Anion Gap 10.0 BUN 12 Creatinine 0.6 GFR Calculation 89 Glucose 125 H Uric Acid 2.7 Calcium 8.4 L Phosphorus 3.0 Magnesium 2.0 Total Bilirubin 0.2 Direct Bilirubin < 0.2 GGT 16 AST 13 ALT 9 Alkaline Phosphatase 158 H Lactate Dehydrogenase 214 Total Protein 5.7 L Albumin 3.0 L Globulin 2.7 Albumin/Globulin Ratio 1.1 Triglycerides 184 H Medical - DS: A/P - Patient/Caregiver Discharge Instructions Activity: as per physical therapy Diet: Regular Diet Additional Instructions: Follow-up orthopedics as advised Weightbearing status per orthopedics High fall risk in light of previous CVA and weakness and deconditioning High protein calorie supplements. aggressive PT OT/ST eval as needed Prescriptions: HYDROcodone/APAP 5/325MG [[place] 5-325Mg] 1 - 2 tab PO Q4HP PRN #60 tab PRN Reason: Pain Prescription Printed Other Amb Orders: Physical Therapy at Discharge - General Location: None Selected Walker Location: None Selected - Problem Maintenance (1) Fracture of hip Status: Acute Qualifiers: Encounter type: initial encounter Fracture type: closed Laterality: left Qualified Code(s): S72.002A - Fracture of unspecified part of neck of left femur, initial encounter for closed fracture - Follow up Plan Follow up with: No,PCP [Referring] - Disposition: Xfer SNF Prognosis: Fair Rehab Potential: Undetermined I certify that the patient requires SNF services: No Overall status at discharge: patient is progressing back to baseline Medical - DS: Qual - VTE Deep Vein Thrombosis/Pulmonary Embolism Present on Admission: No
== END 2019-05-14 13:55 | DRG 481 ==
LOC: ED 14:52 → SUR 17:15 → MEDSUR 19:20
PROVIDERS: ADMIT Internal Medicine; ATTEND Internal Medicine